=== PATIENT | male | born 1945 | race Caucasian/White ===

== ENCOUNTER 2020-04-18 17:31 | Inpatient (IN) ==
[2020-04-18] MEDS ORDERED: Azithromycin 500 MG in 0.9 % Sodium Chloride 250 ML IVPB ONE (18:04)
[2020-04-18] MEDS ORDERED: cefTRIAXone 1,000 MG in Water for inj. (sterile) 10 ML IVP ONE (18:04)
[2020-04-18 18:19] LABS: Basophils % 0.3 %; Hematocrit 45.8 % (37.5-50.1); Immature Granulocytes % 0.4 % (0-4); Immature Platelets 7.1 % (1.1-6.1); Lymphocytes % 10.9 %; Mean Corpuscular HGB Conc 32.8 g/dL (31.6-35.5); Mean Corpuscular Volume 88.4 fL (83.0-100.0); Mean Platelet Volume 11.3 fL (9.4-12.4); Monocytes # 1.1 K/mcL (0.0-1.3); Monocytes % 12.1 %; Platelet Count 126 K/mcL (140-400); Red Blood Count 5.18 M/mcL (4.19-5.50); Red Cell Distribution Width 13.2 % (11.5-14.5); Segmented Neutrophils % 76.3 %; White Blood Count 9.2 K/mcL (4.3-11.1)
[2020-04-18 18:22] LABS: INR 1.2
[2020-04-18 18:25] LABS: Activated Partial Thrombo Time 30.6 Seconds (26.0-36.0)
[2020-04-18] MEDS: 0.9 % Sodium Chloride 1,000 ML IVC SCH ×2 (18:29→19:30)
[2020-04-18 18:40] LABS: Alanine Aminotransferase 19 Units/L (7-52); Albumin/Globulin Ratio 1.2 (1.1-2.2); Alkaline Phosphatase 57 Units/L (34-104); Aspartate Amino Transferase 27 Units/L (13-39); BUN/Creatinine Ratio 12 (6-26); Bilirubin,Direct 0.2 mg/dL (0.0-0.2); Bilirubin,Indirect 0.3 mg/dL (0.0-1.0); Bilirubin,Total 0.5 mg/dL (0.3-1.0); Blood Urea Nitrogen 14 mg/dL (8-23); Calcium 8.6 mg/dL (8.6-10.3); Carbon Dioxide 24 mEq/L (23-29); Chloride 99 mEq/L (98-107); Globulin 3.4 g/dL (2.4-3.5); Glucose 161 mg/dL (70-105); Lipase 29 Units/L (11-82); Magnesium 1.9 mg/dL (1.6-2.6); Osmolality,Calculated 278 (280-300); Phosphorous 1.3 mg/dL (2.7-4.5); Potassium 4.1 mEq/L (3.5-5.1); Sodium 132 mEq/L (136-145); Total Protein 7.4 g/dL (6.4-8.9); Troponin I < 0.03 ng/mL (< 0.04); eGFR For African Americans > 60 (> 60); eGFR For Non-African Americans > 60 (> 60)
[2020-04-18 18:48] LABS: VBG HCO3 27 mEq/L (21-27); VBG PCO2 46 mmHg (41-51); VBG PH 7.37 pH Units (7.32-7.42); VBG PO2 77 mmHg (25-50)
[2020-04-18 19:46] LABS: Bacteria,Urine Few per hpf (None-Few); Bilirubin,Urine Negative (Negative); Blood,Urine Negative (Negative); Clarity,Urine Clear (Clear); Color,Urine Yellow (Yellow); Glucose,Urine (UA) Normal (Normal); Hyaline Casts,Urine Few per lpf (None Seen); Ketones,Urine Trace mg/dL (Negative); Leukocyte Esterase,Urine Negative (Negative); Mucus,Urine Few per lpf (None-Few); Nitrite,Urine Negative (Negative); Protein,Urine 70 mg/dL (Neg-Trace); RBC,Urine 0-3 per hpf (0-3); Specific Gravity,Urine 1.024 (1.010-1.025); Squamous Epithelial Cell,Urine Few per hpf (None-Few); Urobilinogen,Urine Normal (Normal)
[2020-04-18] MEDS ORDERED: Ondansetron 4 MG/2 ML VIAL IVP PRN (21:21)
[2020-04-18] MEDS ORDERED: Naloxone 0.4 MG/ML INJ IVP PRN (21:21)
[2020-04-18] MEDS: *HR* Rivaroxaban 10 MG TABLET PO SCH (22:33)
[2020-04-18] MEDS: Acetaminophen 325 MG TABLET PO PRN (22:33)
[2020-04-19] MEDS ORDERED: *HR* OxyCODONE Immed Rel 5 MG TABLET PO ONE (03:13)
[2020-04-19 06:24] LABS: INR 1.8
[2020-04-19 06:35] LABS: Basophils % 0.3 %; Eosinophils % 0.3 %; Hematocrit 41.3 % (37.5-50.1); Immature Granulocytes % 0.2 % (0-4); Immature Platelets 7.5 % (1.1-6.1); Lymphocytes # 1.7 K/mcL (0.6-4.6); Lymphocytes % 28.9 %; Mean Corpuscular HGB Conc 31.5 g/dL (31.6-35.5); Mean Corpuscular Hemoglobin 28.5 pg (28.0-33.3); Mean Corpuscular Volume 90.6 fL (83.0-100.0); Mean Platelet Volume 10.7 fL (9.4-12.4); Monocytes # 0.9 K/mcL (0.0-1.3); Monocytes % 15.7 %; Neutrophils # 3.1 K/mcL (1.6-8.9); Platelet Count 107 K/mcL (140-400); Red Blood Count 4.56 M/mcL (4.19-5.50); Red Cell Distribution Width 13.4 % (11.5-14.5); Segmented Neutrophils % 54.6 %; White Blood Count 5.7 K/mcL (4.3-11.1)
[2020-04-19 06:40] LABS: Alanine Aminotransferase 16 Units/L (7-52); Albumin 3.5 g/dL (3.5-5.7); Albumin/Globulin Ratio 1.2 (1.1-2.2); Alkaline Phosphatase 48 Units/L (34-104); Aspartate Amino Transferase 27 Units/L (13-39); BUN/Creatinine Ratio 11 (6-26); Bilirubin,Total 0.4 mg/dL (0.3-1.0); Blood Urea Nitrogen 12 mg/dL (8-23); Carbon Dioxide 26 mEq/L (23-29); Chloride 102 mEq/L (98-107); Globulin 2.9 g/dL (2.4-3.5); Glucose 99 mg/dL (70-105); Lactate Dehydrogenase 219 Units/L (140-271); Magnesium 1.9 mg/dL (1.6-2.6); Osmolality,Calculated 280 (280-300); Phosphorous 2.2 mg/dL (2.7-4.5); Potassium 3.9 mEq/L (3.5-5.1); Sodium 135 mEq/L (136-145); Total Protein 6.4 g/dL (6.4-8.9); eGFR For African Americans > 60 (> 60); eGFR For Non-African Americans > 60 (> 60)
[2020-04-19 06:54] LABS: Ferritin 558 ng/mL (20-250)
[2020-04-19] MEDS: DilTIAZem CD (24hr) 120 MG CAP.ER.24H PO SCH (07:59)
[2020-04-19 12:56] LABS: C-Reactive Protein 112 mg/L (Less than 10)
[2020-04-19] MEDS: levoFLOXacin 750 MG/150 ML 750 MG/150 ML BAG IVPB SCH (16:15)
[2020-04-19] MEDS: *HR* Rivaroxaban 10 MG TABLET PO SCH (17:38)
[2020-04-19] MEDS: Acetaminophen 325 MG TABLET PO PRN (20:07)
[2020-04-20 07:18] LABS: Fibrinogen 615 mg/dL (169-393)
[2020-04-20 07:27] LABS: D-Dimer 520 ng/mLFEU (0-500)
[2020-04-20 07:33] LABS: BUN/Creatinine Ratio 15 (6-26); Blood Urea Nitrogen 12 mg/dL (8-23); Calcium 8.8 mg/dL (8.6-10.3); Carbon Dioxide 22 mEq/L (23-29); Chloride 101 mEq/L (98-107); Glucose 207 mg/dL (70-105); Lactate Dehydrogenase 251 Units/L (140-271); Magnesium 2.1 mg/dL (1.6-2.6); Osmolality,Calculated 284 (280-300); Phosphorous 2.4 mg/dL (2.7-4.5); Sodium 134 mEq/L (136-145); eGFR For African Americans > 60 (> 60); eGFR For Non-African Americans > 60 (> 60)
[2020-04-20 07:51] LABS: Ferritin 839 ng/mL (20-250)
[2020-04-20] MEDS: DilTIAZem CD (24hr) 120 MG CAP.ER.24H PO SCH (08:32)
[2020-04-20] MEDS: levoFLOXacin 750 MG/150 ML 750 MG/150 ML BAG IVPB SCH (08:36)
[2020-04-20] MEDS: *HR* Rivaroxaban 10 MG TABLET PO SCH (16:53)
[2020-04-20] MEDS: Melatonin 3 MG TABLET PO PRN (21:45)
[2020-04-21] MEDS: levoFLOXacin 750 MG/150 ML 750 MG/150 ML BAG IVPB SCH (07:52)
[2020-04-21] MEDS: DilTIAZem CD (24hr) 120 MG CAP.ER.24H PO SCH (09:00)
[2020-04-21] MEDS: *HR* Rivaroxaban 10 MG TABLET PO SCH (16:57)
[2020-04-21] MEDS: Melatonin 3 MG TABLET PO PRN (21:29)
[2020-04-22 05:38] LABS: BUN/Creatinine Ratio 18 (6-26); Blood Urea Nitrogen 18 mg/dL (8-23); Calcium 8.7 mg/dL (8.6-10.3); Carbon Dioxide 27 mEq/L (23-29); Chloride 97 mEq/L (98-107); Glucose 106 mg/dL (70-105); Magnesium 1.9 mg/dL (1.6-2.6); Osmolality,Calculated 276 (280-300); Phosphorous 2.8 mg/dL (2.7-4.5); Sodium 132 mEq/L (136-145); eGFR For African Americans > 60 (> 60); eGFR For Non-African Americans > 60 (> 60)
[2020-04-22] MEDS: Furosemide 20 MG/2 ML VIAL IVP SCH (08:42)
[2020-04-22] MEDS: levoFLOXacin 750 MG TABLET PO SCH (08:43)
[2020-04-22] MEDS: DilTIAZem CD (24hr) 120 MG CAP.ER.24H PO SCH (08:43)
[2020-04-22] MEDS: Acetaminophen 325 MG TABLET PO PRN ×2 (09:04→21:36)
[2020-04-22] MEDS: *HR* Rivaroxaban 10 MG TABLET PO SCH (17:18)
[2020-04-22] MEDS: Melatonin 3 MG TABLET PO PRN (21:36)
[2020-04-23] MEDS: levoFLOXacin 750 MG TABLET PO SCH (09:01)
[2020-04-23] MEDS: DilTIAZem CD (24hr) 120 MG CAP.ER.24H PO SCH (09:01)
[2020-04-23] MEDS: Furosemide 20 MG/2 ML VIAL IVP SCH (09:01)
[2020-04-23 09:32] LABS: Basophils % 0.1 %; Hematocrit 45.4 % (37.5-50.1); Immature Granulocytes % 0.8 % (0-4); Lymphocytes # 0.9 K/mcL (0.6-4.6); Lymphocytes % 10.2 %; Mean Corpuscular HGB Conc 33.3 g/dL (31.6-35.5); Mean Corpuscular Hemoglobin 29.4 pg (28.0-33.3); Mean Corpuscular Volume 88.3 fL (83.0-100.0); Mean Platelet Volume 11.2 fL (9.4-12.4); Monocytes # 0.8 K/mcL (0.0-1.3); Monocytes % 9.1 %; Neutrophils # 6.8 K/mcL (1.6-8.9); Platelet Count 198 K/mcL (140-400); Red Blood Count 5.14 M/mcL (4.19-5.50); Red Cell Distribution Width 13.2 % (11.5-14.5); Segmented Neutrophils % 79.8 %; White Blood Count 8.5 K/mcL (4.3-11.1)
[2020-04-23 09:33] LABS: Hemoglobin 15.1 g/dL (12.9-16.9)
[2020-04-23] MEDS: *HR* HYDROcodone/Acet 5/325 mg TABLET PO PRN ×2 (09:39→17:02)
[2020-04-23 09:46] LABS: BUN/Creatinine Ratio 23 (6-26); Blood Urea Nitrogen 20 mg/dL (8-23); Calcium 8.7 mg/dL (8.6-10.3); Carbon Dioxide 27 mEq/L (23-29); Chloride 97 mEq/L (98-107); Ferritin > 1500 ng/mL (20-250); Glucose 119 mg/dL (70-105); Osmolality,Calculated 282 (280-300); Potassium 4.1 mEq/L (3.5-5.1); Sodium 134 mEq/L (136-145); eGFR For African Americans > 60 (> 60); eGFR For Non-African Americans > 60 (> 60)
[2020-04-23 10:06] LABS: Alanine Aminotransferase 48 Units/L (7-52); Albumin 3.7 g/dL (3.5-5.7); Alkaline Phosphatase 57 Units/L (34-104); Aspartate Amino Transferase 38 Units/L (13-39); Bilirubin,Direct 0.2 mg/dL (0.0-0.2); Bilirubin,Indirect 0.5 mg/dL (0.0-1.0); Bilirubin,Total 0.7 mg/dL (0.3-1.0); Globulin 3.6 g/dL (2.4-3.5); Total Protein 7.3 g/dL (6.4-8.9)
[2020-04-23] MEDS ORDERED: Remdesivir 200 MG in 0.9 % Sodium Chloride 100 ML IVPB ONE (13:00)
[2020-04-23] MEDS: *HR* Rivaroxaban 10 MG TABLET PO SCH (17:02)
[2020-04-23] MEDS: Acetaminophen 325 MG TABLET PO PRN (19:54)
[2020-04-23] MEDS: Melatonin 3 MG TABLET PO PRN (19:55)
[2020-04-24 03:16] LABS: Hematocrit 42.1 % (37.5-50.1); Hemoglobin 14.2 g/dL (12.9-16.9); Mean Corpuscular HGB Conc 33.7 g/dL (31.6-35.5); Mean Corpuscular Hemoglobin 29.5 pg (28.0-33.3); Mean Corpuscular Volume 87.5 fL (83.0-100.0); Mean Platelet Volume 11.1 fL (9.4-12.4); Platelet Count 217 K/mcL (140-400); Red Blood Count 4.81 M/mcL (4.19-5.50); Red Cell Distribution Width 13.1 % (11.5-14.5); White Blood Count 9.9 K/mcL (4.3-11.1)
[2020-04-24 03:20] LABS: INR 2.2; Prothrombin Time 24.5 Seconds (9.4-12.1)
[2020-04-24 03:37] LABS: Alanine Aminotransferase 39 Units/L (7-52); Albumin 3.4 g/dL (3.5-5.7); Alkaline Phosphatase 51 Units/L (34-104); Aspartate Amino Transferase 27 Units/L (13-39); BUN/Creatinine Ratio 34 (6-26); Bilirubin,Total 0.4 mg/dL (0.3-1.0); Blood Urea Nitrogen 29 mg/dL (8-23); Calcium 8.9 mg/dL (8.6-10.3); Carbon Dioxide 25 mEq/L (23-29); Chloride 98 mEq/L (98-107); Globulin 3.3 g/dL (2.4-3.5); Glucose 233 mg/dL (70-105); Magnesium 2.3 mg/dL (1.6-2.6); Osmolality,Calculated 285 (280-300); Phosphorous 3.2 mg/dL (2.7-4.5); Potassium 4.4 mEq/L (3.5-5.1); Sodium 131 mEq/L (136-145); Total Protein 6.7 g/dL (6.4-8.9); eGFR For African Americans > 60 (> 60); eGFR For Non-African Americans > 60 (> 60)
[2020-04-24] MEDS: GuaiFENesin/Dextromethorphan TABLET PO PRN (08:58)
[2020-04-24] MEDS: *HR* HYDROcodone/Acet 5/325 mg TABLET PO PRN ×3 (08:58→21:36)
[2020-04-24] MEDS: levoFLOXacin 750 MG TABLET PO SCH (08:58)
[2020-04-24] MEDS: DilTIAZem CD (24hr) 120 MG CAP.ER.24H PO SCH (08:58)
[2020-04-24] MEDS: Loratadine 10 MG TABLET PO SCH (08:58)
[2020-04-24] MEDS: Furosemide 20 MG/2 ML VIAL IVP SCH (08:59)
[2020-04-24] MEDS: Ipratropium 1 PUFF INHALER IH SCH ×4 (12:20→23:53)
[2020-04-24] MEDS: Remdesivir 100 MG in 0.9 % Sodium Chloride 100 ML IVPB SCH (14:27)
[2020-04-24] MEDS: *HR* Rivaroxaban 10 MG TABLET PO SCH (18:13)
[2020-04-24] MEDS: Furosemide 40 MG/4 ML VIAL IVP SCH (21:06)
[2020-04-25] MEDS: Ipratropium 1 PUFF INHALER IH SCH ×5 (04:07→20:24)
[2020-04-25 05:34] LABS: Basophils % 0.2 %; Hematocrit 43.4 % (37.5-50.1); Hematocrit 45.3 % (37.5-50.1); Hemoglobin 14.7 g/dL (12.9-16.9); Immature Granulocytes % 1.3 % (0-4); Lymphocytes % 8.3 %; Mean Corpuscular HGB Conc 32.5 g/dL (31.6-35.5); Mean Corpuscular HGB Conc 33.9 g/dL (31.6-35.5); Mean Corpuscular Hemoglobin 28.6 pg (28.0-33.3); Mean Corpuscular Hemoglobin 29.8 pg (28.0-33.3); Mean Corpuscular Volume 87.9 fL (83.0-100.0); Mean Corpuscular Volume 88.1 fL (83.0-100.0); Mean Platelet Volume 10.9 fL (9.4-12.4); Mean Platelet Volume 11.1 fL (9.4-12.4); Monocytes # 1.3 K/mcL (0.0-1.3); Neutrophils # 10.1 K/mcL (1.6-8.9); Platelet Count 280 K/mcL (140-400); Platelet Count 294 K/mcL (140-400); Red Blood Count 4.94 M/mcL (4.19-5.50); Red Blood Count 5.14 M/mcL (4.19-5.50); Red Cell Distribution Width 13.2 % (11.5-14.5); Segmented Neutrophils % 80.2 %; White Blood Count 12.6 K/mcL (4.3-11.1); White Blood Count 12.8 K/mcL (4.3-11.1)
[2020-04-25 05:36] LABS: Prothrombin Time 22.7 Seconds (9.4-12.1)
[2020-04-25 05:50] LABS: Alanine Aminotransferase 37 Units/L (7-52); Albumin 3.4 g/dL (3.5-5.7); Alkaline Phosphatase 52 Units/L (34-104); Aspartate Amino Transferase 24 Units/L (13-39); BUN/Creatinine Ratio 38 (6-26); Bilirubin,Total 0.5 mg/dL (0.3-1.0); Blood Urea Nitrogen 34 mg/dL (8-23); Carbon Dioxide 25 mEq/L (23-29); Chloride 96 mEq/L (98-107); Globulin 3.4 g/dL (2.4-3.5); Glucose 251 mg/dL (70-105); Osmolality,Calculated 290 (280-300); Potassium 4.2 mEq/L (3.5-5.1); Sodium 132 mEq/L (136-145); Total Protein 6.8 g/dL (6.4-8.9); eGFR For African Americans > 60 (> 60); eGFR For Non-African Americans > 60 (> 60)
[2020-04-25] MEDS: Furosemide 40 MG/4 ML VIAL IVP SCH ×2 (07:53→20:30)
[2020-04-25] MEDS: Pantoprazole 40 MG VIAL IVP SCH (07:57)
[2020-04-25] MEDS: Loratadine 10 MG TABLET PO SCH (07:58)
[2020-04-25] MEDS: DilTIAZem CD (24hr) 120 MG CAP.ER.24H PO SCH (07:58)
[2020-04-25] MEDS: levoFLOXacin 750 MG TABLET PO SCH (07:58)
[2020-04-25] MEDS: Doxycycline 100 MG in 0.9 % Sodium Chloride Mini Bag 100 ML IVPB SCH ×2 (08:26→16:25)
[2020-04-25] MEDS ORDERED: D5% in Water 1,000 ML IVC PRN (12:57)
[2020-04-25] MEDS ORDERED: Dextrose Gel 15 GM/37.5 ML TUBE PO PRN ×2 (12:57)
[2020-04-25] MEDS ORDERED: *HR* Dextrose 50 % in Water (Vial) 50 ML VIAL IVP PRN (12:57)
[2020-04-25] MEDS: Remdesivir 100 MG in 0.9 % Sodium Chloride 100 ML IVPB SCH (12:59)
[2020-04-25] MEDS: Insulin LISPRO 300 UNITS/3 ML VIAL SUBQ SCH (16:25)
[2020-04-25] MEDS: *HR* Rivaroxaban 10 MG TABLET PO SCH (16:25)
[2020-04-25 17:36] LABS: ABG Base Excess 1 mEq/L (-2 to 3); ABG HCO3 24 mEq/L (21-27); ABG Oxygen Saturation 89 % (95-98); ABG PCO2 34 mmHg (35-45); ABG PH 7.46 pH Units (7.32-7.45); ABG PO2 52 mmHg (85-104); ABG TCO2 25 mEq/L (20-26)
[2020-04-25] MEDS: *HR* HYDROcodone/Acet 5/325 mg TABLET PO PRN (18:24)
[2020-04-25] MEDS ORDERED: Insulin LISPRO 300 UNITS/3 ML VIAL SUBQ SCH (21:00)
[2020-04-26] MEDS: Ipratropium 1 PUFF INHALER IH SCH ×7 (00:35→23:57)
[2020-04-26] MEDS: Doxycycline 100 MG in 0.9 % Sodium Chloride Mini Bag 100 ML IVPB SCH ×2 (05:33→17:02)
[2020-04-26 05:37] LABS: Basophils # 0.1 K/mcL (0.0-0.2); Basophils % 0.4 %; Hematocrit 43.8 % (37.5-50.1); Hemoglobin 14.6 g/dL (12.9-16.9); Lymphocytes # 1.1 K/mcL (0.6-4.6); Lymphocytes % 8.6 %; Mean Corpuscular HGB Conc 33.3 g/dL (31.6-35.5); Mean Corpuscular Hemoglobin 29.4 pg (28.0-33.3); Mean Corpuscular Volume 88.1 fL (83.0-100.0); Mean Platelet Volume 10.8 fL (9.4-12.4); Monocytes # 1.3 K/mcL (0.0-1.3); Monocytes % 10.5 %; Neutrophils # 9.7 K/mcL (1.6-8.9); Platelet Count 297 K/mcL (140-400); Red Blood Count 4.97 M/mcL (4.19-5.50); Red Cell Distribution Width 13.2 % (11.5-14.5); Segmented Neutrophils % 78.5 %; White Blood Count 12.3 K/mcL (4.3-11.1)
[2020-04-26 05:48] LABS: INR 1.9; Prothrombin Time 21.9 Seconds (9.4-12.1)
[2020-04-26 06:01] LABS: Alanine Aminotransferase 46 Units/L (7-52); Albumin 3.4 g/dL (3.5-5.7); Alkaline Phosphatase 54 Units/L (34-104); Aspartate Amino Transferase 24 Units/L (13-39); BUN/Creatinine Ratio 43 (6-26); Bilirubin,Total 0.6 mg/dL (0.3-1.0); Blood Urea Nitrogen 41 mg/dL (8-23); Calcium 9.2 mg/dL (8.6-10.3); Carbon Dioxide 26 mEq/L (23-29); Chloride 95 mEq/L (98-107); Globulin 3.3 g/dL (2.4-3.5); Glucose 357 mg/dL (70-105); Magnesium 2.3 mg/dL (1.6-2.6); Osmolality,Calculated 298 (280-300); Potassium 4.4 mEq/L (3.5-5.1); Sodium 132 mEq/L (136-145); Total Protein 6.7 g/dL (6.4-8.9); eGFR For African Americans > 60 (> 60); eGFR For Non-African Americans > 60 (> 60)
[2020-04-26 06:12] LABS: Platelet Estimate Normal (Normal); Reactive Lymphocytes Present (Not Present); Smudge Cells Present (Not Present)
[2020-04-26] MEDS: Furosemide 40 MG/4 ML VIAL IVP SCH ×2 (08:25→19:55)
[2020-04-26] MEDS: Pantoprazole 40 MG VIAL IVP SCH (08:26)
[2020-04-26] MEDS: Loratadine 10 MG TABLET PO SCH (08:26)
[2020-04-26] MEDS: DilTIAZem CD (24hr) 120 MG CAP.ER.24H PO SCH (08:26)
[2020-04-26] MEDS: Insulin LISPRO 300 UNITS/3 ML VIAL SUBQ SCH ×4 (08:27→20:15)
[2020-04-26] MEDS: *HR* HYDROcodone/Acet 5/325 mg TABLET PO PRN ×2 (09:24→20:44)
[2020-04-26] MEDS ORDERED: Insulin DETEMIR 100 UNIT/ML X5UNITS SUBQ SCH ×3 (12:15→21:00)
[2020-04-26] MEDS: Remdesivir 100 MG in 0.9 % Sodium Chloride 100 ML IVPB SCH (12:54)
[2020-04-26] MEDS: *HR* Rivaroxaban 10 MG TABLET PO SCH (17:02)
[2020-04-26] MEDS ORDERED: *HR* Dextrose 50 % in Water (Vial) 50 ML VIAL IVP PRN (20:00)
[2020-04-26] MEDS ORDERED: D5% in Water 1,000 ML IVC PRN (20:00)
[2020-04-26] MEDS ORDERED: Dextrose Gel 15 GM/37.5 ML TUBE PO PRN ×2 (20:00)
[2020-04-27] MEDS: Ipratropium 1 PUFF INHALER IH SCH ×6 (04:25→23:56)
[2020-04-27 05:36] LABS: Hematocrit 44.8 % (37.5-50.1); Hemoglobin 14.9 g/dL (12.9-16.9); Mean Corpuscular HGB Conc 33.3 g/dL (31.6-35.5); Mean Corpuscular Volume 87.2 fL (83.0-100.0); Mean Platelet Volume 10.8 fL (9.4-12.4); Platelet Count 304 K/mcL (140-400); Red Blood Count 5.14 M/mcL (4.19-5.50); Red Cell Distribution Width 13.1 % (11.5-14.5); White Blood Count 14.5 K/mcL (4.3-11.1)
[2020-04-27 05:43] LABS: INR 1.5
[2020-04-27] MEDS: Doxycycline 100 MG in 0.9 % Sodium Chloride Mini Bag 100 ML IVPB SCH ×2 (05:45→18:12)
[2020-04-27 05:56] LABS: Alanine Aminotransferase 53 Units/L (7-52); Albumin 3.4 g/dL (3.5-5.7); Alkaline Phosphatase 55 Units/L (34-104); Aspartate Amino Transferase 20 Units/L (13-39); BUN/Creatinine Ratio 43 (6-26); Bilirubin,Total 0.7 mg/dL (0.3-1.0); Blood Urea Nitrogen 40 mg/dL (8-23); Calcium 9.3 mg/dL (8.6-10.3); Carbon Dioxide 30 mEq/L (23-29); Chloride 92 mEq/L (98-107); Globulin 3.3 g/dL (2.4-3.5); Glucose 367 mg/dL (70-105); Osmolality,Calculated 295 (280-300); Potassium 4.8 mEq/L (3.5-5.1); Sodium 130 mEq/L (136-145); Total Protein 6.7 g/dL (6.4-8.9); eGFR For African Americans > 60 (> 60); eGFR For Non-African Americans > 60 (> 60)
[2020-04-27] MEDS ORDERED: Magic Mouthwash 10 ML UD Cup PO SCH (07:45)
[2020-04-27] MEDS: Insulin LISPRO 300 UNITS/3 ML VIAL SUBQ SCH ×4 (09:19→20:36)
[2020-04-27] MEDS: Insulin DETEMIR 100 UNIT/ML X5UNITS SUBQ SCH ×2 (09:20→20:36)
[2020-04-27] MEDS: Loratadine 10 MG TABLET PO SCH (09:20)
[2020-04-27] MEDS: Fluconazole 400 MG/200 ML 400 MG/200 ML BAG IVPB SCH (09:20)
[2020-04-27] MEDS: DilTIAZem CD (24hr) 120 MG CAP.ER.24H PO SCH (09:20)
[2020-04-27] MEDS: Furosemide 40 MG/4 ML VIAL IVP SCH ×2 (09:21→18:11)
[2020-04-27] MEDS: Pantoprazole 40 MG VIAL IVP SCH (09:21)
[2020-04-27] MEDS: GI Cocktail 40 ML EACH PO SCH ×3 (09:29→18:11)
[2020-04-27 09:36] LABS: Estimated Average Glucose 166 mg/dl; Hemoglobin A1C 7.4 %
[2020-04-27] MEDS: *HR* HYDROcodone/Acet 5/325 mg TABLET PO PRN (12:18)
[2020-04-27] MEDS: Remdesivir 100 MG in 0.9 % Sodium Chloride 100 ML IVPB SCH (13:38)
[2020-04-27] MEDS: *HR* Rivaroxaban 10 MG TABLET PO SCH (18:12)
[2020-04-28] MEDS: Ipratropium 1 PUFF INHALER IH SCH ×5 (04:06→20:25)
[2020-04-28] MEDS: Doxycycline 100 MG in 0.9 % Sodium Chloride Mini Bag 100 ML IVPB SCH ×2 (05:19→17:18)
[2020-04-28 06:10] LABS: Basophils # 0.1 K/mcL (0.0-0.2); Basophils % 0.4 %; Fibrinogen 448 mg/dL (169-393); Hemoglobin 15.4 g/dL (12.9-16.9); Immature Granulocytes % 2.8 % (0-4); Lymphocytes % 6.3 %; Mean Corpuscular HGB Conc 32.8 g/dL (31.6-35.5); Mean Corpuscular Hemoglobin 28.3 pg (28.0-33.3); Mean Corpuscular Volume 86.4 fL (83.0-100.0); Mean Platelet Volume 11.2 fL (9.4-12.4); Monocytes # 1.3 K/mcL (0.0-1.3); Monocytes % 8.4 %; Neutrophils # 12.4 K/mcL (1.6-8.9); Platelet Count 324 K/mcL (140-400); Red Blood Count 5.44 M/mcL (4.19-5.50); Red Cell Distribution Width 13.2 % (11.5-14.5); Segmented Neutrophils % 82.1 %; White Blood Count 15.2 K/mcL (4.3-11.1)
[2020-04-28 06:11] LABS: D-Dimer 610 ng/mLFEU (0-500)
[2020-04-28 06:31] LABS: BUN/Creatinine Ratio 46 (6-26); Blood Urea Nitrogen 46 mg/dL (8-23); Calcium 9.5 mg/dL (8.6-10.3); Carbon Dioxide 29 mEq/L (23-29); Chloride 90 mEq/L (98-107); Glucose 381 mg/dL (70-105); Osmolality,Calculated 298 (280-300); Potassium 4.9 mEq/L (3.5-5.1); Sodium 130 mEq/L (136-145); eGFR For African Americans > 60 (> 60); eGFR For Non-African Americans > 60 (> 60)
[2020-04-28] MEDS: Furosemide 40 MG/4 ML VIAL IVP SCH (08:42)
[2020-04-28] MEDS: Insulin DETEMIR 100 UNIT/ML X5UNITS SUBQ SCH ×2 (08:42→20:10)
[2020-04-28] MEDS: GI Cocktail 40 ML EACH PO SCH ×3 (08:42→17:17)
[2020-04-28] MEDS: Fluconazole 400 MG/200 ML 400 MG/200 ML BAG IVPB SCH (08:43)
[2020-04-28] MEDS: Pantoprazole 40 MG VIAL IVP SCH (08:43)
[2020-04-28] MEDS: Loratadine 10 MG TABLET PO SCH (08:44)
[2020-04-28] MEDS: DilTIAZem CD (24hr) 120 MG CAP.ER.24H PO SCH (08:44)
[2020-04-28] MEDS: Insulin LISPRO 300 UNITS/3 ML VIAL SUBQ SCH ×4 (08:45→20:21)
[2020-04-28] MEDS: *HR* HYDROcodone/Acet 5/325 mg TABLET PO PRN (11:47)
[2020-04-28] MEDS: *HR* Rivaroxaban 10 MG TABLET PO SCH (17:19)
[2020-04-29] MEDS: Ipratropium 1 PUFF INHALER IH SCH ×6 (00:13→20:12)
[2020-04-29] MEDS: Doxycycline 100 MG in 0.9 % Sodium Chloride Mini Bag 100 ML IVPB SCH ×2 (05:31→17:06)
[2020-04-29 06:36] LABS: Basophils # 0.1 K/mcL (0.0-0.2); Basophils % 0.3 %; Hematocrit 48.2 % (37.5-50.1); Hemoglobin 15.8 g/dL (12.9-16.9); Immature Granulocytes % 2.6 % (0-4); Lymphocytes # 1.1 K/mcL (0.6-4.6); Lymphocytes % 6.5 %; Mean Corpuscular HGB Conc 32.8 g/dL (31.6-35.5); Mean Corpuscular Hemoglobin 28.4 pg (28.0-33.3); Mean Corpuscular Volume 86.7 fL (83.0-100.0); Mean Platelet Volume 10.9 fL (9.4-12.4); Monocytes # 1.4 K/mcL (0.0-1.3); Monocytes % 8.2 %; Neutrophils # 14.2 K/mcL (1.6-8.9); Platelet Count 312 K/mcL (140-400); Red Blood Count 5.56 M/mcL (4.19-5.50); Red Cell Distribution Width 13.1 % (11.5-14.5); Segmented Neutrophils % 82.4 %; White Blood Count 17.3 K/mcL (4.3-11.1)
[2020-04-29 06:42] LABS: Fibrinogen 384 mg/dL (169-393)
[2020-04-29 06:43] LABS: D-Dimer 459 ng/mLFEU (0-500)
[2020-04-29 06:54] LABS: Magnesium 2.4 mg/dL (1.6-2.6); Phosphorous 4.2 mg/dL (2.7-4.5)
[2020-04-29 06:59] LABS: BUN/Creatinine Ratio 49 (6-26); Blood Urea Nitrogen 47 mg/dL (8-23); Calcium 9.1 mg/dL (8.6-10.3); Carbon Dioxide 31 mEq/L (23-29); Chloride 92 mEq/L (98-107); Glucose 173 mg/dL (70-105); Osmolality,Calculated 288 (280-300); Potassium 4.8 mEq/L (3.5-5.1); Sodium 131 mEq/L (136-145); eGFR For African Americans > 60 (> 60); eGFR For Non-African Americans > 60 (> 60)
[2020-04-29] MEDS: Fluconazole 400 MG/200 ML 400 MG/200 ML BAG IVPB SCH (08:34)
[2020-04-29] MEDS: Furosemide 40 MG/4 ML VIAL IVP SCH ×3 (08:35→22:26)
[2020-04-29] MEDS: DilTIAZem CD (24hr) 120 MG CAP.ER.24H PO SCH (08:35)
[2020-04-29] MEDS: Pantoprazole 40 MG VIAL IVP SCH ×2 (08:35→13:04)
[2020-04-29] MEDS: Loratadine 10 MG TABLET PO SCH (08:35)
[2020-04-29] MEDS: Insulin LISPRO 300 UNITS/3 ML VIAL SUBQ SCH ×4 (08:38→22:26)
[2020-04-29] MEDS: Insulin DETEMIR 100 UNIT/ML X5UNITS SUBQ SCH ×2 (08:39→22:27)
[2020-04-29] MEDS: GI Cocktail 40 ML EACH PO SCH ×3 (08:44→17:07)
[2020-04-29] MEDS: *HR* HYDROcodone/Acet 5/325 mg TABLET PO PRN ×2 (11:20→22:44)
[2020-04-29] MEDS: *HR* Rivaroxaban 10 MG TABLET PO SCH (17:05)
[2020-04-30] MEDS: Ipratropium 1 PUFF INHALER IH SCH ×7 (00:07→23:57)
[2020-04-30 02:40] LABS: Basophils % 0.3 %; Hematocrit 48.1 % (37.5-50.1); Immature Granulocytes % 2.2 % (0-4); Lymphocytes # 0.6 K/mcL (0.6-4.6); Lymphocytes % 4.6 %; Mean Corpuscular HGB Conc 33.3 g/dL (31.6-35.5); Mean Corpuscular Hemoglobin 28.8 pg (28.0-33.3); Mean Corpuscular Volume 86.7 fL (83.0-100.0); Mean Platelet Volume 10.8 fL (9.4-12.4); Monocytes % 7.1 %; Neutrophils # 11.6 K/mcL (1.6-8.9); Platelet Count 296 K/mcL (140-400); Red Blood Count 5.55 M/mcL (4.19-5.50); Red Cell Distribution Width 13.2 % (11.5-14.5); Segmented Neutrophils % 85.8 %; White Blood Count 13.6 K/mcL (4.3-11.1)
[2020-04-30 03:00] LABS: BUN/Creatinine Ratio 46 (6-26); Blood Urea Nitrogen 51 mg/dL (8-23); Calcium 9.1 mg/dL (8.6-10.3); Carbon Dioxide 28 mEq/L (23-29); Chloride 88 mEq/L (98-107); Glucose 419 mg/dL (70-105); Osmolality,Calculated 297 (280-300); Phosphorous 4.1 mg/dL (2.7-4.5); Sodium 128 mEq/L (136-145); eGFR For African Americans > 60 (> 60); eGFR For Non-African Americans > 60 (> 60)
[2020-04-30] MEDS: *HR* HYDROcodone/Acet 5/325 mg TABLET PO PRN ×2 (04:39→20:17)
[2020-04-30] MEDS: Doxycycline 100 MG in 0.9 % Sodium Chloride Mini Bag 100 ML IVPB SCH ×2 (05:57→17:52)
[2020-04-30] MEDS: Insulin LISPRO 300 UNITS/3 ML VIAL SUBQ SCH ×4 (08:20→21:24)
[2020-04-30] MEDS: GI Cocktail 40 ML EACH PO SCH (08:26)
[2020-04-30] MEDS: Loratadine 10 MG TABLET PO SCH (08:29)
[2020-04-30] MEDS: DilTIAZem CD (24hr) 120 MG CAP.ER.24H PO SCH (08:29)
[2020-04-30] MEDS: Furosemide 40 MG/4 ML VIAL IVP SCH (08:34)
[2020-04-30] MEDS: Pantoprazole 40 MG VIAL IVP SCH (08:38)
[2020-04-30] MEDS: Insulin DETEMIR 100 UNIT/ML X5UNITS SUBQ SCH ×3 (08:41→20:32)
[2020-04-30] MEDS: Fluconazole 400 MG/200 ML 400 MG/200 ML BAG IVPB SCH (08:42)
[2020-04-30] MEDS ORDERED: Dextrose Gel 15 GM/37.5 ML TUBE PO PRN ×2 (16:14)
[2020-04-30] MEDS ORDERED: *HR* Dextrose 50 % in Water (Vial) 50 ML VIAL IVP PRN (16:14)
[2020-04-30] MEDS ORDERED: D5% in Water 1,000 ML IVC PRN (16:14)
[2020-04-30] MEDS: *HR* Rivaroxaban 10 MG TABLET PO SCH (17:52)
[2020-05-01 01:55] LABS: Basophils % 0.2 %; Hematocrit 50.7 % (37.5-50.1); Hemoglobin 16.5 g/dL (12.9-16.9); Immature Granulocytes % 1.4 % (0-4); Lymphocytes # 0.9 K/mcL (0.6-4.6); Lymphocytes % 5.2 %; Mean Corpuscular HGB Conc 32.5 g/dL (31.6-35.5); Mean Corpuscular Hemoglobin 28.4 pg (28.0-33.3); Mean Corpuscular Volume 87.1 fL (83.0-100.0); Mean Platelet Volume 10.7 fL (9.4-12.4); Monocytes # 1.5 K/mcL (0.0-1.3); Monocytes % 8.8 %; Neutrophils # 14.6 K/mcL (1.6-8.9); Platelet Count 275 K/mcL (140-400); Red Blood Count 5.82 M/mcL (4.19-5.50); Red Cell Distribution Width 13.2 % (11.5-14.5); Segmented Neutrophils % 84.4 %; White Blood Count 17.3 K/mcL (4.3-11.1)
[2020-05-01 02:19] LABS: BUN/Creatinine Ratio 49 (6-26); Blood Urea Nitrogen 50 mg/dL (8-23); Calcium 9.1 mg/dL (8.6-10.3); Carbon Dioxide 32 mEq/L (23-29); Chloride 91 mEq/L (98-107); Glucose 167 mg/dL (70-105); Osmolality,Calculated 291 (280-300); Potassium 5.1 mEq/L (3.5-5.1); Sodium 132 mEq/L (136-145); eGFR For African Americans > 60 (> 60); eGFR For Non-African Americans > 60 (> 60)
[2020-05-01] MEDS: Ipratropium 1 PUFF INHALER IH SCH ×6 (03:54→22:59)
[2020-05-01] MEDS: Doxycycline 100 MG in 0.9 % Sodium Chloride Mini Bag 100 ML IVPB SCH (05:19)
[2020-05-01] MEDS: Insulin LISPRO 300 UNITS/3 ML VIAL SUBQ SCH ×4 (08:21→19:50)
[2020-05-01] MEDS: Insulin DETEMIR 100 UNIT/ML X5UNITS SUBQ SCH ×2 (08:22→19:49)
[2020-05-01] MEDS: Fluconazole 400 MG/200 ML 400 MG/200 ML BAG IVPB SCH (08:22)
[2020-05-01] MEDS: Loratadine 10 MG TABLET PO SCH (08:22)
[2020-05-01] MEDS: DilTIAZem CD (24hr) 120 MG CAP.ER.24H PO SCH (08:22)
[2020-05-01] MEDS: cefTRIAXone 1,000 MG in Water for inj. (sterile) 10 ML IVP SCH (17:08)
[2020-05-01] MEDS: *HR* Metformin 500 MG TABLET PO SCH (17:08)
[2020-05-01] MEDS: *HR* Rivaroxaban 10 MG TABLET PO SCH (17:08)
[2020-05-01] MEDS: *HR* HYDROcodone/Acet 5/325 mg TABLET PO PRN (17:21)
[2020-05-02] MEDS ORDERED: Melatonin 3 MG TABLET PO ONE (00:10)
[2020-05-02] MEDS: Ipratropium 1 PUFF INHALER IH SCH ×6 (04:22→23:33)
[2020-05-02 06:56] LABS: Basophils % 0.2 %; Hematocrit 50.5 % (37.5-50.1); Immature Granulocytes % 0.9 % (0-4); Lymphocytes # 0.9 K/mcL (0.6-4.6); Lymphocytes % 4.5 %; Mean Corpuscular HGB Conc 33.7 g/dL (31.6-35.5); Mean Corpuscular Hemoglobin 29.7 pg (28.0-33.3); Mean Corpuscular Volume 88.1 fL (83.0-100.0); Monocytes # 1.8 K/mcL (0.0-1.3); Monocytes % 9.7 %; Neutrophils # 15.9 K/mcL (1.6-8.9); Platelet Count 230 K/mcL (140-400); Red Blood Count 5.73 M/mcL (4.19-5.50); Red Cell Distribution Width 13.2 % (11.5-14.5); Segmented Neutrophils % 84.7 %; White Blood Count 18.7 K/mcL (4.3-11.1)
[2020-05-02 07:15] LABS: BUN/Creatinine Ratio 49 (6-26); Blood Urea Nitrogen 47 mg/dL (8-23); Carbon Dioxide 30 mEq/L (23-29); Chloride 95 mEq/L (98-107); Glucose 87 mg/dL (70-105); Osmolality,Calculated 288 (280-300); Potassium 5.2 mEq/L (3.5-5.1); Sodium 133 mEq/L (136-145); eGFR For African Americans > 60 (> 60); eGFR For Non-African Americans > 60 (> 60)
[2020-05-02] MEDS: DilTIAZem CD (24hr) 120 MG CAP.ER.24H PO SCH (09:20)
[2020-05-02] MEDS: Loratadine 10 MG TABLET PO SCH (09:20)
[2020-05-02] MEDS: *HR* Metformin 500 MG TABLET PO SCH ×2 (09:20→17:33)
[2020-05-02] MEDS: Insulin DETEMIR 100 UNIT/ML X5UNITS SUBQ SCH (09:20)
[2020-05-02] MEDS: *HR* HYDROcodone/Acet 5/325 mg TABLET PO PRN (09:20)
[2020-05-02] MEDS: cefTRIAXone 1,000 MG in Water for inj. (sterile) 10 ML IVP SCH (09:21)
[2020-05-02] MEDS: Insulin LISPRO 300 UNITS/3 ML VIAL SUBQ SCH ×4 (09:22→20:28)
[2020-05-02] MEDS ORDERED: Insulin LISPRO 300 UNITS/3 ML VIAL SUBQ SCH (13:39)
[2020-05-02] MEDS: *HR* Rivaroxaban 10 MG TABLET PO SCH (17:33)
[2020-05-02] MEDS ORDERED: Insulin DETEMIR 100 UNIT/ML X5UNITS SUBQ SCH (21:00)
[2020-05-03] MEDS: *HR* HYDROcodone/Acet 5/325 mg TABLET PO PRN ×2 (01:39→18:48)
[2020-05-03] MEDS: Ipratropium 1 PUFF INHALER IH SCH ×6 (03:18→23:50)
[2020-05-03 06:37] LABS: Basophils % 0.2 %; Eosinophils % 0.1 %; Hematocrit 51.1 % (37.5-50.1); Hemoglobin 16.6 g/dL (12.9-16.9); Immature Granulocytes % 0.8 % (0-4); Lymphocytes # 0.9 K/mcL (0.6-4.6); Lymphocytes % 4.3 %; Mean Corpuscular HGB Conc 32.5 g/dL (31.6-35.5); Mean Corpuscular Hemoglobin 28.4 pg (28.0-33.3); Mean Corpuscular Volume 87.5 fL (83.0-100.0); Mean Platelet Volume 11.4 fL (9.4-12.4); Monocytes # 2.1 K/mcL (0.0-1.3); Monocytes % 10.2 %; Neutrophils # 17.4 K/mcL (1.6-8.9); Platelet Count 228 K/mcL (140-400); Red Blood Count 5.84 M/mcL (4.19-5.50); Red Cell Distribution Width 13.4 % (11.5-14.5); Segmented Neutrophils % 84.4 %; White Blood Count 20.6 K/mcL (4.3-11.1)
[2020-05-03 06:57] LABS: BUN/Creatinine Ratio 48 (6-26); Blood Urea Nitrogen 41 mg/dL (8-23); Calcium 9.3 mg/dL (8.6-10.3); Carbon Dioxide 30 mEq/L (23-29); Chloride 96 mEq/L (98-107); Glucose 73 mg/dL (70-105); Osmolality,Calculated 289 (280-300); Potassium 4.6 mEq/L (3.5-5.1); Sodium 135 mEq/L (136-145); eGFR For African Americans > 60 (> 60); eGFR For Non-African Americans > 60 (> 60)
[2020-05-03] MEDS: *HR* Metformin 500 MG TABLET PO SCH ×2 (07:41→17:03)
[2020-05-03] MEDS: Furosemide 20 MG TABLET PO SCH (07:42)
[2020-05-03] MEDS: DilTIAZem CD (24hr) 120 MG CAP.ER.24H PO SCH (07:42)
[2020-05-03] MEDS: Loratadine 10 MG TABLET PO SCH (07:42)
[2020-05-03] MEDS: cefTRIAXone 1,000 MG in Water for inj. (sterile) 10 ML IVP SCH (07:43)
[2020-05-03] MEDS: Insulin LISPRO 300 UNITS/3 ML VIAL SUBQ SCH ×3 (08:02→21:43)
[2020-05-03] MEDS: *HR* Rivaroxaban 10 MG TABLET PO SCH (17:03)
[2020-05-03] MEDS ORDERED: Insulin DETEMIR 100 UNIT/ML X5UNITS SUBQ SCH ×2 (21:00)
[2020-05-04 02:48] LABS: Basophils % 0.1 %; Eosinophils # 0.2 K/mcL (0.0-0.6); Hematocrit 50.7 % (37.5-50.1); Hemoglobin 16.8 g/dL (12.9-16.9); Immature Granulocytes % 0.8 % (0-4); Lymphocytes # 1.2 K/mcL (0.6-4.6); Lymphocytes % 6.9 %; Mean Corpuscular HGB Conc 33.1 g/dL (31.6-35.5); Mean Corpuscular Hemoglobin 29.4 pg (28.0-33.3); Mean Corpuscular Volume 88.8 fL (83.0-100.0); Monocytes # 1.8 K/mcL (0.0-1.3); Monocytes % 10.1 %; Neutrophils # 14.2 K/mcL (1.6-8.9); Platelet Count 212 K/mcL (140-400); Red Blood Count 5.71 M/mcL (4.19-5.50); Red Cell Distribution Width 13.4 % (11.5-14.5); Segmented Neutrophils % 81.1 %; White Blood Count 17.5 K/mcL (4.3-11.1)
[2020-05-04 03:07] LABS: BUN/Creatinine Ratio 43 (6-26); Blood Urea Nitrogen 40 mg/dL (8-23); Carbon Dioxide 26 mEq/L (23-29); Chloride 98 mEq/L (98-107); Glucose 159 mg/dL (70-105); Osmolality,Calculated 289 (280-300); Potassium 4.7 mEq/L (3.5-5.1); Sodium 133 mEq/L (136-145); eGFR For African Americans > 60 (> 60); eGFR For Non-African Americans > 60 (> 60)
[2020-05-04] MEDS: Ipratropium 1 PUFF INHALER IH SCH ×6 (04:00→23:57)
[2020-05-04] MEDS: *HR* HYDROcodone/Acet 5/325 mg TABLET PO PRN (06:49)
[2020-05-04] MEDS: Insulin LISPRO 300 UNITS/3 ML VIAL SUBQ SCH ×4 (08:50→19:55)
[2020-05-04] MEDS: DilTIAZem CD (24hr) 120 MG CAP.ER.24H PO SCH (08:51)
[2020-05-04] MEDS: Loratadine 10 MG TABLET PO SCH (08:51)
[2020-05-04] MEDS: Furosemide 20 MG TABLET PO SCH (08:51)
[2020-05-04] MEDS: polyethylene glycoL 3350 17 GM POWD.PACK PO SCH (08:51)
[2020-05-04] MEDS: cefTRIAXone 1,000 MG in Water for inj. (sterile) 10 ML IVP SCH (08:52)
[2020-05-04] MEDS: *HR* Rivaroxaban 10 MG TABLET PO SCH (16:28)
[2020-05-04] MEDS: Insulin DETEMIR 100 UNIT/ML X5UNITS SUBQ SCH (20:15)
[2020-05-04] MEDS: Sennosides/Docusate Sodium TABLET PO SCH (20:15)
[2020-05-04] MEDS: Psyllium 1 PACKET POWD.PACK PO SCH (20:15)
[2020-05-05] MEDS: Ipratropium 1 PUFF INHALER IH SCH ×6 (03:48→23:50)
[2020-05-05 07:19] LABS: Hematocrit 52.3 % (37.5-50.1); Hemoglobin 17.4 g/dL (12.9-16.9); Mean Corpuscular HGB Conc 33.3 g/dL (31.6-35.5); Mean Corpuscular Hemoglobin 29.5 pg (28.0-33.3); Mean Corpuscular Volume 88.6 fL (83.0-100.0); Mean Platelet Volume 11.6 fL (9.4-12.4); Platelet Count 196 K/mcL (140-400); Red Cell Distribution Width 13.2 % (11.5-14.5); White Blood Count 15.2 K/mcL (4.3-11.1)
[2020-05-05 07:28] LABS: INR 1.2; Prothrombin Time 14.1 Seconds (9.4-12.1)
[2020-05-05] MEDS: Insulin LISPRO 300 UNITS/3 ML VIAL SUBQ SCH ×4 (07:37→20:56)
[2020-05-05 07:42] LABS: BUN/Creatinine Ratio 38 (6-26); Blood Urea Nitrogen 35 mg/dL (8-23); Calcium 8.6 mg/dL (8.6-10.3); Carbon Dioxide 27 mEq/L (23-29); Chloride 99 mEq/L (98-107); Glucose 127 mg/dL (70-105); Osmolality,Calculated 292 (280-300); Potassium 4.5 mEq/L (3.5-5.1); Sodium 136 mEq/L (136-145); eGFR For African Americans > 60 (> 60); eGFR For Non-African Americans > 60 (> 60)
[2020-05-05] MEDS: Cholecalciferol (D-3) 1,000 UNIT (25MCG) TABLET PO SCH (08:40)
[2020-05-05] MEDS: Loratadine 10 MG TABLET PO SCH (08:41)
[2020-05-05] MEDS: polyethylene glycoL 3350 17 GM POWD.PACK PO SCH (08:41)
[2020-05-05] MEDS: Psyllium 1 PACKET POWD.PACK PO SCH ×3 (08:41→21:01)
[2020-05-05] MEDS: Furosemide 20 MG TABLET PO SCH (08:41)
[2020-05-05] MEDS: Sennosides/Docusate Sodium TABLET PO SCH ×2 (08:41→21:01)
[2020-05-05] MEDS: DilTIAZem CD (24hr) 120 MG CAP.ER.24H PO SCH (08:41)
[2020-05-05] MEDS: cefTRIAXone 1,000 MG in Water for inj. (sterile) 10 ML IVP SCH (08:51)
[2020-05-05] MEDS: *HR* Rivaroxaban 10 MG TABLET PO SCH (17:09)
[2020-05-05] MEDS: Insulin DETEMIR 100 UNIT/ML X5UNITS SUBQ SCH (21:29)
[2020-05-06 01:49] LABS: Hematocrit 50.2 % (37.5-50.1); Hemoglobin 16.3 g/dL (12.9-16.9); Mean Corpuscular HGB Conc 32.5 g/dL (31.6-35.5); Mean Corpuscular Hemoglobin 29.5 pg (28.0-33.3); Mean Corpuscular Volume 90.9 fL (83.0-100.0); Mean Platelet Volume 12.2 fL (9.4-12.4); Platelet Count 179 K/mcL (140-400); Red Blood Count 5.52 M/mcL (4.19-5.50); Red Cell Distribution Width 13.1 % (11.5-14.5); White Blood Count 16.2 K/mcL (4.3-11.1)
[2020-05-06 01:57] LABS: INR 1.4; Prothrombin Time 16.4 Seconds (9.4-12.1)
[2020-05-06 02:15] LABS: BUN/Creatinine Ratio 35 (6-26); Blood Urea Nitrogen 33 mg/dL (8-23); Calcium 8.8 mg/dL (8.6-10.3); Carbon Dioxide 28 mEq/L (23-29); Chloride 99 mEq/L (98-107); Glucose 257 mg/dL (70-105); Osmolality,Calculated 296 (280-300); Potassium 4.4 mEq/L (3.5-5.1); Sodium 135 mEq/L (136-145); eGFR For African Americans > 60 (> 60); eGFR For Non-African Americans > 60 (> 60)
[2020-05-06] MEDS: Ipratropium 1 PUFF INHALER IH SCH ×6 (04:50→23:39)
[2020-05-06] MEDS: Insulin LISPRO 300 UNITS/3 ML VIAL SUBQ SCH ×4 (08:36→20:05)
[2020-05-06] MEDS: Psyllium 1 PACKET POWD.PACK PO SCH ×3 (09:35→20:05)
[2020-05-06] MEDS: DilTIAZem CD (24hr) 120 MG CAP.ER.24H PO SCH (09:35)
[2020-05-06] MEDS: polyethylene glycoL 3350 17 GM POWD.PACK PO SCH (09:35)
[2020-05-06] MEDS: cefTRIAXone 1,000 MG in Water for inj. (sterile) 10 ML IVP SCH (09:36)
[2020-05-06] MEDS: Furosemide 20 MG TABLET PO SCH (09:36)
[2020-05-06] MEDS: Sennosides/Docusate Sodium TABLET PO SCH ×2 (09:36→20:05)
[2020-05-06] MEDS: Cholecalciferol (D-3) 1,000 UNIT (25MCG) TABLET PO SCH (09:36)
[2020-05-06] MEDS: Loratadine 10 MG TABLET PO SCH (09:38)
[2020-05-06] MEDS: *HR* Rivaroxaban 10 MG TABLET PO SCH (17:38)
[2020-05-07] MEDS: Ipratropium 1 PUFF INHALER IH SCH ×6 (03:33→23:55)
[2020-05-07 07:11] LABS: Hematocrit 49.3 % (37.5-50.1); Hemoglobin 16.2 g/dL (12.9-16.9); Mean Corpuscular HGB Conc 32.9 g/dL (31.6-35.5); Mean Corpuscular Hemoglobin 29.3 pg (28.0-33.3); Mean Corpuscular Volume 89.3 fL (83.0-100.0); Mean Platelet Volume 12.2 fL (9.4-12.4); Platelet Count 172 K/mcL (140-400); Red Blood Count 5.52 M/mcL (4.19-5.50); White Blood Count 14.1 K/mcL (4.3-11.1)
[2020-05-07 07:28] LABS: BUN/Creatinine Ratio 33 (6-26); Blood Urea Nitrogen 29 mg/dL (8-23); Carbon Dioxide 33 mEq/L (23-29); Chloride 99 mEq/L (98-107); Glucose 160 mg/dL (70-105); Osmolality,Calculated 293 (280-300); Potassium 4.1 mEq/L (3.5-5.1); Sodium 137 mEq/L (136-145); eGFR For African Americans > 60 (> 60); eGFR For Non-African Americans > 60 (> 60)
[2020-05-07] MEDS: Furosemide 20 MG TABLET PO SCH (07:51)
[2020-05-07] MEDS: Cholecalciferol (D-3) 1,000 UNIT (25MCG) TABLET PO SCH (07:51)
[2020-05-07] MEDS: Sennosides/Docusate Sodium TABLET PO SCH ×2 (07:51→20:31)
[2020-05-07] MEDS: Loratadine 10 MG TABLET PO SCH (07:51)
[2020-05-07] MEDS: DilTIAZem CD (24hr) 120 MG CAP.ER.24H PO SCH (07:51)
[2020-05-07] MEDS: Psyllium 1 PACKET POWD.PACK PO SCH ×3 (07:52→20:30)
[2020-05-07] MEDS: cefTRIAXone 1,000 MG in Water for inj. (sterile) 10 ML IVP SCH (07:52)
[2020-05-07] MEDS: Insulin LISPRO 300 UNITS/3 ML VIAL SUBQ SCH ×4 (07:52→20:31)
[2020-05-07] MEDS: polyethylene glycoL 3350 17 GM POWD.PACK PO SCH (07:52)
[2020-05-07] MEDS: *HR* Rivaroxaban 10 MG TABLET PO SCH (16:26)
[2020-05-07] MEDS: Acetaminophen 325 MG TABLET PO PRN (18:32)
[2020-05-08] MEDS: Ipratropium 1 PUFF INHALER IH SCH ×5 (04:27→20:43)
[2020-05-08] MEDS: Furosemide 20 MG TABLET PO SCH (09:18)
[2020-05-08] MEDS: polyethylene glycoL 3350 17 GM POWD.PACK PO SCH (09:18)
[2020-05-08] MEDS: Sennosides/Docusate Sodium TABLET PO SCH ×2 (09:18→20:49)
[2020-05-08] MEDS: DilTIAZem CD (24hr) 120 MG CAP.ER.24H PO SCH (09:18)
[2020-05-08] MEDS: Cholecalciferol (D-3) 1,000 UNIT (25MCG) TABLET PO SCH (09:18)
[2020-05-08] MEDS: Psyllium 1 PACKET POWD.PACK PO SCH ×3 (09:18→20:49)
[2020-05-08] MEDS: Insulin LISPRO 300 UNITS/3 ML VIAL SUBQ SCH ×4 (09:19→20:49)
[2020-05-08] MEDS: *HR* Rivaroxaban 10 MG TABLET PO SCH (17:56)
[2020-05-08] MEDS: Acetaminophen 325 MG TABLET PO PRN (21:02)
[2020-05-09] MEDS: Ipratropium 1 PUFF INHALER IH SCH ×7 (00:22→23:09)
[2020-05-09 05:09] LABS: Basophils % 0.2 %; Eosinophils # 0.5 K/mcL (0.0-0.6); Eosinophils % 4.2 %; Hematocrit 44.8 % (37.5-50.1); Hemoglobin 14.7 g/dL (12.9-16.9); Immature Granulocytes % 0.6 % (0-4); Lymphocytes # 1.4 K/mcL (0.6-4.6); Lymphocytes % 13.1 %; Mean Corpuscular HGB Conc 32.8 g/dL (31.6-35.5); Mean Corpuscular Hemoglobin 29.2 pg (28.0-33.3); Mean Corpuscular Volume 89.1 fL (83.0-100.0); Mean Platelet Volume 11.7 fL (9.4-12.4); Monocytes # 0.9 K/mcL (0.0-1.3); Monocytes % 8.5 %; Platelet Count 152 K/mcL (140-400); Red Blood Count 5.03 M/mcL (4.19-5.50); Red Cell Distribution Width 13.1 % (11.5-14.5); Segmented Neutrophils % 73.4 %; White Blood Count 10.9 K/mcL (4.3-11.1)
[2020-05-09 05:28] LABS: BUN/Creatinine Ratio 24 (6-26); Blood Urea Nitrogen 20 mg/dL (8-23); Calcium 8.4 mg/dL (8.6-10.3); Carbon Dioxide 29 mEq/L (23-29); Chloride 100 mEq/L (98-107); Glucose 116 mg/dL (70-105); Osmolality,Calculated 282 (280-300); Potassium 4.1 mEq/L (3.5-5.1); Sodium 134 mEq/L (136-145); eGFR For African Americans > 60 (> 60); eGFR For Non-African Americans > 60 (> 60)
[2020-05-09] MEDS: Insulin LISPRO 300 UNITS/3 ML VIAL SUBQ SCH ×4 (07:42→21:02)
[2020-05-09] MEDS: Cholecalciferol (D-3) 1,000 UNIT (25MCG) TABLET PO SCH (07:50)
[2020-05-09] MEDS: DilTIAZem CD (24hr) 120 MG CAP.ER.24H PO SCH (07:50)
[2020-05-09] MEDS: Furosemide 20 MG TABLET PO SCH ×2 (07:50→17:07)
[2020-05-09] MEDS: Psyllium 1 PACKET POWD.PACK PO SCH ×3 (07:51→21:02)
[2020-05-09] MEDS: Sennosides/Docusate Sodium TABLET PO SCH ×2 (07:51→21:02)
[2020-05-09] MEDS: polyethylene glycoL 3350 17 GM POWD.PACK PO SCH (07:51)
[2020-05-09] MEDS: *HR* Rivaroxaban 10 MG TABLET PO SCH (17:07)
[2020-05-09] MEDS: Acetaminophen 325 MG TABLET PO PRN (21:09)
[2020-05-10] MEDS: Ipratropium 1 PUFF INHALER IH SCH ×6 (04:13→23:56)
[2020-05-10 06:43] LABS: BUN/Creatinine Ratio 20 (6-26); Blood Urea Nitrogen 18 mg/dL (8-23); Calcium 8.8 mg/dL (8.6-10.3); Carbon Dioxide 31 mEq/L (23-29); Chloride 99 mEq/L (98-107); Glucose 128 mg/dL (70-105); Osmolality,Calculated 282 (280-300); Potassium 4.1 mEq/L (3.5-5.1); Sodium 134 mEq/L (136-145); eGFR For African Americans > 60 (> 60); eGFR For Non-African Americans > 60 (> 60)
[2020-05-10] MEDS: Insulin LISPRO 300 UNITS/3 ML VIAL SUBQ SCH ×4 (07:56→19:49)
[2020-05-10] MEDS: Psyllium 1 PACKET POWD.PACK PO SCH ×3 (07:57→19:48)
[2020-05-10] MEDS: Sennosides/Docusate Sodium TABLET PO SCH ×2 (07:57→19:48)
[2020-05-10] MEDS: DilTIAZem CD (24hr) 120 MG CAP.ER.24H PO SCH (07:57)
[2020-05-10] MEDS: polyethylene glycoL 3350 17 GM POWD.PACK PO SCH (07:57)
[2020-05-10] MEDS: Cholecalciferol (D-3) 1,000 UNIT (25MCG) TABLET PO SCH (07:57)
[2020-05-10] MEDS: Furosemide 20 MG TABLET PO SCH ×2 (07:57→16:54)
[2020-05-10] MEDS: Acetaminophen 325 MG TABLET PO PRN ×2 (08:03→20:00)
[2020-05-10] MEDS: *HR* Rivaroxaban 10 MG TABLET PO SCH (16:54)
[2020-05-11 04:07] LABS: BUN/Creatinine Ratio 26 (6-26); Blood Urea Nitrogen 20 mg/dL (8-23); Calcium 8.9 mg/dL (8.6-10.3); Carbon Dioxide 29 mEq/L (23-29); Chloride 100 mEq/L (98-107); Glucose 124 mg/dL (70-105); Osmolality,Calculated 284 (280-300); Potassium 3.9 mEq/L (3.5-5.1); Sodium 135 mEq/L (136-145); eGFR For African Americans > 60 (> 60); eGFR For Non-African Americans > 60 (> 60)
[2020-05-11] MEDS: Ipratropium 1 PUFF INHALER IH SCH ×5 (04:20→20:09)
[2020-05-11] MEDS: Acetaminophen 325 MG TABLET PO PRN ×2 (04:28→13:21)
[2020-05-11] MEDS: Insulin LISPRO 300 UNITS/3 ML VIAL SUBQ SCH ×4 (08:10→21:34)
[2020-05-11] MEDS: Cholecalciferol (D-3) 1,000 UNIT (25MCG) TABLET PO SCH (09:25)
[2020-05-11] MEDS: Furosemide 20 MG TABLET PO SCH ×2 (09:25→17:55)
[2020-05-11] MEDS: Sennosides/Docusate Sodium TABLET PO SCH ×3 (09:25→21:34)
[2020-05-11] MEDS: polyethylene glycoL 3350 17 GM POWD.PACK PO SCH (09:26)
[2020-05-11] MEDS: DilTIAZem CD (24hr) 120 MG CAP.ER.24H PO SCH (09:26)
[2020-05-11] MEDS: Psyllium 1 PACKET POWD.PACK PO SCH ×4 (09:26→21:34)
[2020-05-11] MEDS: *HR* Rivaroxaban 10 MG TABLET PO SCH (17:55)
[2020-05-12] MEDS: Ipratropium 1 PUFF INHALER IH SCH ×6 (00:01→20:32)
[2020-05-12 03:00] LABS: BUN/Creatinine Ratio 27 (6-26); Blood Urea Nitrogen 21 mg/dL (8-23); Calcium 8.7 mg/dL (8.6-10.3); Carbon Dioxide 30 mEq/L (23-29); Chloride 97 mEq/L (98-107); Glucose 147 mg/dL (70-105); Osmolality,Calculated 282 (280-300); Potassium 3.8 mEq/L (3.5-5.1); Sodium 133 mEq/L (136-145); eGFR For African Americans > 60 (> 60); eGFR For Non-African Americans > 60 (> 60)
[2020-05-12] MEDS: Acetaminophen 325 MG TABLET PO PRN (05:33)
[2020-05-12] MEDS: Insulin LISPRO 300 UNITS/3 ML VIAL SUBQ SCH ×4 (09:04→22:05)
[2020-05-12] MEDS: DilTIAZem CD (24hr) 120 MG CAP.ER.24H PO SCH (09:06)
[2020-05-12] MEDS: Sennosides/Docusate Sodium TABLET PO SCH ×2 (09:06→22:24)
[2020-05-12] MEDS: polyethylene glycoL 3350 17 GM POWD.PACK PO SCH (09:06)
[2020-05-12] MEDS: Furosemide 20 MG TABLET PO SCH ×2 (09:06→18:23)
[2020-05-12] MEDS: Psyllium 1 PACKET POWD.PACK PO SCH ×3 (09:06→22:24)
[2020-05-12] MEDS: Cholecalciferol (D-3) 1,000 UNIT (25MCG) TABLET PO SCH (09:06)
[2020-05-12] MEDS: *HR* HYDROcodone/Acet 5/325 mg TABLET PO PRN ×2 (12:35→23:51)
[2020-05-12] MEDS: Saline Nasal Spray 44 ML BOTTLE NS PRN (12:35)
[2020-05-12] MEDS: *HR* Rivaroxaban 10 MG TABLET PO SCH (18:23)
[2020-05-13] MEDS: Ipratropium 1 PUFF INHALER IH SCH ×7 (00:49→23:17)
[2020-05-13 07:32] LABS: BUN/Creatinine Ratio 20 (6-26); Blood Urea Nitrogen 14 mg/dL (8-23); Calcium 8.7 mg/dL (8.6-10.3); Carbon Dioxide 28 mEq/L (23-29); Chloride 97 mEq/L (98-107); Glucose 115 mg/dL (70-105); Osmolality,Calculated 277 (280-300); Potassium 3.9 mEq/L (3.5-5.1); Sodium 133 mEq/L (136-145); eGFR For African Americans > 60 (> 60); eGFR For Non-African Americans > 60 (> 60)
[2020-05-13] MEDS: Insulin LISPRO 300 UNITS/3 ML VIAL SUBQ SCH ×4 (08:21→21:52)
[2020-05-13] MEDS: Cholecalciferol (D-3) 1,000 UNIT (25MCG) TABLET PO SCH (09:27)
[2020-05-13] MEDS: Sennosides/Docusate Sodium TABLET PO SCH ×2 (09:27→21:52)
[2020-05-13] MEDS: polyethylene glycoL 3350 17 GM POWD.PACK PO SCH (09:28)
[2020-05-13] MEDS: Furosemide 20 MG TABLET PO SCH ×2 (09:28→18:26)
[2020-05-13] MEDS: Psyllium 1 PACKET POWD.PACK PO SCH ×3 (09:28→21:52)
[2020-05-13] MEDS: DilTIAZem CD (24hr) 120 MG CAP.ER.24H PO SCH (09:28)
[2020-05-13] MEDS: *HR* HYDROcodone/Acet 5/325 mg TABLET PO PRN ×2 (09:37→21:47)
[2020-05-13 10:07] LABS: Basophils % 0.5 %; Eosinophils # 0.7 K/mcL (0.0-0.6); Eosinophils % 8.6 %; Hematocrit 38.6 % (37.5-50.1); Hemoglobin 12.8 g/dL (12.9-16.9); Immature Granulocytes % 0.6 % (0-4); Immature Platelets 4.9 % (1.1-6.1); Lymphocytes % 12.8 %; Mean Corpuscular HGB Conc 33.2 g/dL (31.6-35.5); Mean Corpuscular Hemoglobin 29.6 pg (28.0-33.3); Mean Corpuscular Volume 89.1 fL (83.0-100.0); Monocytes % 12.1 %; Platelet Count 136 K/mcL (140-400); Red Blood Count 4.33 M/mcL (4.19-5.50); Segmented Neutrophils % 65.4 %; White Blood Count 7.9 K/mcL (4.3-11.1)
[2020-05-13 10:08] LABS: Neutrophils # 5.2 K/mcL (1.6-8.9)
[2020-05-13] MEDS: *HR* Rivaroxaban 10 MG TABLET PO SCH (18:26)
[2020-05-14] MEDS: Ipratropium 1 PUFF INHALER IH SCH ×6 (03:54→23:44)
[2020-05-14 06:28] LABS: BUN/Creatinine Ratio 19 (6-26); Blood Urea Nitrogen 15 mg/dL (8-23); Calcium 8.7 mg/dL (8.6-10.3); Carbon Dioxide 30 mEq/L (23-29); Chloride 97 mEq/L (98-107); Glucose 119 mg/dL (70-105); Osmolality,Calculated 278 (280-300); Potassium 3.9 mEq/L (3.5-5.1); Sodium 133 mEq/L (136-145); eGFR For African Americans > 60 (> 60); eGFR For Non-African Americans > 60 (> 60)
[2020-05-14] MEDS: Insulin LISPRO 300 UNITS/3 ML VIAL SUBQ SCH ×4 (08:51→20:24)
[2020-05-14] MEDS: Furosemide 20 MG TABLET PO SCH ×2 (08:52→17:06)
[2020-05-14] MEDS: Cholecalciferol (D-3) 1,000 UNIT (25MCG) TABLET PO SCH (08:52)
[2020-05-14] MEDS: Psyllium 1 PACKET POWD.PACK PO SCH ×3 (08:53→22:09)
[2020-05-14] MEDS: DilTIAZem CD (24hr) 120 MG CAP.ER.24H PO SCH (08:53)
[2020-05-14] MEDS: polyethylene glycoL 3350 17 GM POWD.PACK PO SCH (08:53)
[2020-05-14] MEDS: Sennosides/Docusate Sodium TABLET PO SCH ×2 (08:53→22:09)
[2020-05-14] MEDS: *HR* HYDROcodone/Acet 5/325 mg TABLET PO PRN ×2 (09:09→22:07)
[2020-05-14] MEDS: *HR* Rivaroxaban 10 MG TABLET PO SCH (17:06)
[2020-05-15 02:57] LABS: BUN/Creatinine Ratio 24 (6-26); Blood Urea Nitrogen 16 mg/dL (8-23); Carbon Dioxide 25 mEq/L (23-29); Chloride 98 mEq/L (98-107); Glucose 103 mg/dL (70-105); Osmolality,Calculated 277 (280-300); Sodium 133 mEq/L (136-145); eGFR For African Americans > 60 (> 60); eGFR For Non-African Americans > 60 (> 60)
[2020-05-15] MEDS: Ipratropium 1 PUFF INHALER IH SCH ×5 (04:37→20:38)
[2020-05-15] MEDS: DilTIAZem CD (24hr) 120 MG CAP.ER.24H PO SCH (09:36)
[2020-05-15] MEDS: Furosemide 20 MG TABLET PO SCH (09:36)
[2020-05-15] MEDS: polyethylene glycoL 3350 17 GM POWD.PACK PO SCH (09:37)
[2020-05-15] MEDS: Sennosides/Docusate Sodium TABLET PO SCH ×2 (09:37→20:41)
[2020-05-15] MEDS: Cholecalciferol (D-3) 1,000 UNIT (25MCG) TABLET PO SCH (09:37)
[2020-05-15] MEDS: Psyllium 1 PACKET POWD.PACK PO SCH (09:37)
[2020-05-15] MEDS: Insulin LISPRO 300 UNITS/3 ML VIAL SUBQ SCH ×4 (09:39→20:42)
[2020-05-15] MEDS ORDERED: polyethylene glycoL 3350 17 GM POWD.PACK PO PRN (14:51)
[2020-05-15] MEDS ORDERED: Psyllium 1 PACKET POWD.PACK PO PRN (14:51)
[2020-05-15] MEDS: Saline Nasal Spray 44 ML BOTTLE NS PRN (15:00)
[2020-05-15] MEDS: *HR* Rivaroxaban 10 MG TABLET PO SCH (17:03)
[2020-05-15 17:37] LABS: Hematocrit 39.5 % (37.5-50.1); Hemoglobin 12.9 g/dL (12.9-16.9)
[2020-05-15] MEDS: *HR* HYDROcodone/Acet 5/325 mg TABLET PO PRN (20:41)
[2020-05-15] MEDS: Artificial Tears SOLN 15 ML BOTTLE BOTH EYES SCH (20:44)
[2020-05-16] MEDS: Ipratropium 1 PUFF INHALER IH SCH ×7 (00:29→23:43)
[2020-05-16 03:30] LABS: Hematocrit 37.4 % (37.5-50.1); Hemoglobin 12.2 g/dL (12.9-16.9); Mean Corpuscular HGB Conc 32.6 g/dL (31.6-35.5); Mean Corpuscular Hemoglobin 28.4 pg (28.0-33.3); Mean Corpuscular Volume 87.2 fL (83.0-100.0); Mean Platelet Volume 10.6 fL (9.4-12.4); Platelet Count 153 K/mcL (140-400); Red Blood Count 4.29 M/mcL (4.19-5.50); Red Cell Distribution Width 12.8 % (11.5-14.5); White Blood Count 6.4 K/mcL (4.3-11.1)
[2020-05-16 03:46] LABS: Blood Urea Nitrogen 13 mg/dL (8-23); Calcium 8.9 mg/dL (8.6-10.3); Carbon Dioxide 28 mEq/L (23-29); Chloride 99 mEq/L (98-107); Glucose 138 mg/dL (70-105); Magnesium 1.9 mg/dL (1.6-2.6); Osmolality,Calculated 280 (280-300); Phosphorous 3.8 mg/dL (2.7-4.5); Potassium 3.9 mEq/L (3.5-5.1); Sodium 134 mEq/L (136-145)
[2020-05-16 04:31] LABS: BUN/Creatinine Ratio 18 (6-26); eGFR For African Americans > 60 (> 60); eGFR For Non-African Americans > 60 (> 60)
[2020-05-16] MEDS: Multivit/Ca/Min/Fe/FA 1 TAB TABLET PO SCH (08:15)
[2020-05-16] MEDS: Sennosides/Docusate Sodium TABLET PO SCH ×2 (08:15→21:14)
[2020-05-16] MEDS: DilTIAZem CD (24hr) 120 MG CAP.ER.24H PO SCH (08:15)
[2020-05-16] MEDS: Cholecalciferol (D-3) 1,000 UNIT (25MCG) TABLET PO SCH (08:15)
[2020-05-16] MEDS: Insulin LISPRO 300 UNITS/3 ML VIAL SUBQ SCH ×4 (08:17→21:29)
[2020-05-16] MEDS: Artificial Tears SOLN 15 ML BOTTLE BOTH EYES SCH ×2 (08:19→21:28)
[2020-05-16] MEDS: Saline Nasal Spray 44 ML BOTTLE NS PRN (08:19)
[2020-05-16] MEDS: *HR* Rivaroxaban 10 MG TABLET PO SCH (16:34)
[2020-05-16] MEDS: Melatonin 3 MG TABLET PO PRN (21:14)
[2020-05-16] MEDS: *HR* HYDROcodone/Acet 5/325 mg TABLET PO PRN (21:14)
[2020-05-17] MEDS: Ipratropium 1 PUFF INHALER IH SCH ×4 (04:04→22:41)
[2020-05-17 04:19] LABS: ABG Base Excess 4 mEq/L (-2 to 3); ABG HCO3 28 mEq/L (21-27); ABG Oxygen Saturation 91 % (95-98); ABG PCO2 41 mmHg (35-45); ABG PH 7.45 pH Units (7.32-7.45); ABG PO2 57 mmHg (85-104); ABG TCO2 30 mEq/L (20-26)
[2020-05-17 04:26] LABS: Hematocrit 34.4 % (37.5-50.1); Hemoglobin 11.5 g/dL (12.9-16.9); Mean Corpuscular HGB Conc 33.4 g/dL (31.6-35.5); Mean Corpuscular Volume 86.6 fL (83.0-100.0); Mean Platelet Volume 10.6 fL (9.4-12.4); Platelet Count 163 K/mcL (140-400); Red Blood Count 3.97 M/mcL (4.19-5.50); Red Cell Distribution Width 12.8 % (11.5-14.5); White Blood Count 5.4 K/mcL (4.3-11.1)
[2020-05-17 04:43] LABS: BUN/Creatinine Ratio 12 (6-26); Blood Urea Nitrogen 9 mg/dL (8-23); Calcium 8.5 mg/dL (8.6-10.3); Carbon Dioxide 29 mEq/L (23-29); Chloride 98 mEq/L (98-107); Glucose 120 mg/dL (70-105); Magnesium 1.9 mg/dL (1.6-2.6); Osmolality,Calculated 276 (280-300); Phosphorous 3.7 mg/dL (2.7-4.5); Potassium 3.9 mEq/L (3.5-5.1); Sodium 133 mEq/L (136-145); eGFR For African Americans > 60 (> 60); eGFR For Non-African Americans > 60 (> 60)
[2020-05-17] MEDS: Sennosides/Docusate Sodium TABLET PO SCH ×2 (09:20→20:16)
[2020-05-17] MEDS: Multivit/Ca/Min/Fe/FA 1 TAB TABLET PO SCH (09:20)
[2020-05-17] MEDS: DilTIAZem CD (24hr) 120 MG CAP.ER.24H PO SCH (09:20)
[2020-05-17] MEDS: Calcium Gluconate 1gm/50mL 1 GM/50 ML BAG IVPB SCH ×2 (09:21→10:19)
[2020-05-17] MEDS: Artificial Tears SOLN 15 ML BOTTLE BOTH EYES SCH ×2 (09:21→20:17)
[2020-05-17] MEDS: Cholecalciferol (D-3) 1,000 UNIT (25MCG) TABLET PO SCH (09:21)
[2020-05-17] MEDS: Furosemide 20 MG TABLET PO SCH (09:21)
[2020-05-17] MEDS: Insulin LISPRO 300 UNITS/3 ML VIAL SUBQ SCH ×4 (09:28→20:09)
[2020-05-17] MEDS ORDERED: Ipratropium 1 PUFF INHALER IH PRN (15:00)
[2020-05-17] MEDS ORDERED: *HR* LORazepam 0.5 MG TABLET PO ONE (16:03)
[2020-05-17] MEDS: *HR* Rivaroxaban 10 MG TABLET PO SCH (17:18)
[2020-05-17] MEDS: *HR* HYDROcodone/Acet 5/325 mg TABLET PO PRN (17:24)
[2020-05-18] MEDS: Ipratropium 1 PUFF INHALER IH SCH ×4 (03:40→21:57)
[2020-05-18 06:00] LABS: BUN/Creatinine Ratio 15 (6-26); Blood Urea Nitrogen 10 mg/dL (8-23); Calcium 8.7 mg/dL (8.6-10.3); Carbon Dioxide 27 mEq/L (23-29); Chloride 99 mEq/L (98-107); Glucose 122 mg/dL (70-105); Magnesium 2.1 mg/dL (1.6-2.6); Osmolality,Calculated 274 (280-300); Phosphorous 3.3 mg/dL (2.7-4.5); Potassium 4.1 mEq/L (3.5-5.1); Sodium 132 mEq/L (136-145); eGFR For African Americans > 60 (> 60); eGFR For Non-African Americans > 60 (> 60)
[2020-05-18 06:10] LABS: Hematocrit 35.1 % (37.5-50.1); Hemoglobin 11.7 g/dL (12.9-16.9); Mean Corpuscular HGB Conc 33.3 g/dL (31.6-35.5); Mean Corpuscular Hemoglobin 29.4 pg (28.0-33.3); Mean Corpuscular Volume 88.2 fL (83.0-100.0); Mean Platelet Volume 10.8 fL (9.4-12.4); Platelet Count 206 K/mcL (140-400); Red Blood Count 3.98 M/mcL (4.19-5.50); Red Cell Distribution Width 12.6 % (11.5-14.5); White Blood Count 6.3 K/mcL (4.3-11.1)
[2020-05-18] MEDS ORDERED: *HR* Vasopressin 20 UNIT/ML VIAL ONE (07:36)
[2020-05-18] MEDS ORDERED: *HR* Norepinephrine 4 MG/4 ML VIAL IVC ONE (07:36)
[2020-05-18] MEDS ORDERED: Ketamine *HR* 500 MG/10 ML MDV ONE (07:37)
[2020-05-18] MEDS: Insulin LISPRO 300 UNITS/3 ML VIAL SUBQ SCH ×4 (09:00→20:28)
[2020-05-18] MEDS: DilTIAZem CD (24hr) 120 MG CAP.ER.24H PO SCH (10:29)
[2020-05-18] MEDS: Sennosides/Docusate Sodium TABLET PO SCH ×2 (10:29→20:28)
[2020-05-18] MEDS: Furosemide 20 MG TABLET PO SCH (10:29)
[2020-05-18] MEDS: Artificial Tears SOLN 15 ML BOTTLE BOTH EYES SCH ×2 (10:29→20:34)
[2020-05-18] MEDS: Multivit/Ca/Min/Fe/FA 1 TAB TABLET PO SCH (10:29)
[2020-05-18] MEDS: Cholecalciferol (D-3) 1,000 UNIT (25MCG) TABLET PO SCH (10:29)
[2020-05-18] MEDS: *HR* HYDROcodone/Acet 5/325 mg TABLET PO PRN ×2 (13:39→20:29)
[2020-05-18] MEDS: *HR* Rivaroxaban 10 MG TABLET PO SCH (16:58)
[2020-05-18] MEDS: Melatonin 3 MG TABLET PO PRN (20:29)
[2020-05-18] MEDS ORDERED: Saliva Stimulant 44.3ml BOTTLE PO PRN (22:23)
[2020-05-19] MEDS: Ipratropium 1 PUFF INHALER IH SCH ×4 (04:03→22:21)
[2020-05-19 05:29] LABS: Hematocrit 35.4 % (37.5-50.1); Hemoglobin 11.6 g/dL (12.9-16.9); Mean Corpuscular HGB Conc 32.8 g/dL (31.6-35.5); Mean Corpuscular Hemoglobin 29.2 pg (28.0-33.3); Mean Corpuscular Volume 89.2 fL (83.0-100.0); Mean Platelet Volume 10.3 fL (9.4-12.4); Platelet Count 253 K/mcL (140-400); Red Blood Count 3.97 M/mcL (4.19-5.50); Red Cell Distribution Width 12.6 % (11.5-14.5); White Blood Count 5.5 K/mcL (4.3-11.1)
[2020-05-19 05:49] LABS: BUN/Creatinine Ratio 17 (6-26); Blood Urea Nitrogen 12 mg/dL (8-23); Calcium 8.5 mg/dL (8.6-10.3); Carbon Dioxide 28 mEq/L (23-29); Chloride 99 mEq/L (98-107); Glucose 110 mg/dL (70-105); Osmolality,Calculated 276 (280-300); Phosphorous 3.3 mg/dL (2.7-4.5); Sodium 133 mEq/L (136-145); eGFR For African Americans > 60 (> 60); eGFR For Non-African Americans > 60 (> 60)
[2020-05-19 05:52] LABS: % Iron Saturation 13 % (20-55); Iron 28 mcg/dL (65-175); Transferrin 153 mg/dL (203-362)
[2020-05-19 06:10] LABS: Ferritin 745 ng/mL (20-250)
[2020-05-19 06:15] LABS: Folate 16.5 ng/mL (3.0-16.0)
[2020-05-19 06:23] LABS: Vitamin B12 > 1500 pg/mL (250-1100)
[2020-05-19] MEDS ORDERED: Iron Sucrose Complex 400 MG in 0.9 % Sodium Chloride 250 ML IVPB ONE (08:28)
[2020-05-19] MEDS: Insulin LISPRO 300 UNITS/3 ML VIAL SUBQ SCH ×4 (08:43→20:47)
[2020-05-19] MEDS: Multivit/Ca/Min/Fe/FA 1 TAB TABLET PO SCH (08:46)
[2020-05-19] MEDS: Furosemide 20 MG TABLET PO SCH (08:46)
[2020-05-19] MEDS: Cholecalciferol (D-3) 1,000 UNIT (25MCG) TABLET PO SCH (08:46)
[2020-05-19] MEDS: DilTIAZem CD (24hr) 120 MG CAP.ER.24H PO SCH (08:46)
[2020-05-19] MEDS: GuaiFENesin/Dextromethorphan TABLET PO PRN (08:46)
[2020-05-19] MEDS: Sennosides/Docusate Sodium TABLET PO SCH ×2 (08:46→20:47)
[2020-05-19] MEDS: *HR* LORazepam 0.5 MG TABLET PO PRN ×2 (08:53→16:45)
[2020-05-19] MEDS: Calcium Gluconate 1gm/50mL 1 GM/50 ML BAG IVPB SCH ×2 (08:56→10:15)
[2020-05-19] MEDS: Artificial Tears SOLN 15 ML BOTTLE BOTH EYES SCH ×2 (09:26→20:47)
[2020-05-19] MEDS: *HR* Rivaroxaban 10 MG TABLET PO SCH (17:47)
[2020-05-19] MEDS: *HR* HYDROcodone/Acet 5/325 mg TABLET PO PRN (17:53)
[2020-05-19] MEDS: Melatonin 3 MG TABLET PO PRN (20:47)
[2020-05-20] MEDS: Ipratropium 1 PUFF INHALER IH SCH ×4 (04:37→19:46)
[2020-05-20 05:27] LABS: Hematocrit 34.2 % (37.5-50.1); Hemoglobin 11.3 g/dL (12.9-16.9); Mean Corpuscular Volume 87.9 fL (83.0-100.0); Mean Platelet Volume 9.7 fL (9.4-12.4); Platelet Count 275 K/mcL (140-400); Red Blood Count 3.89 M/mcL (4.19-5.50); Red Cell Distribution Width 12.7 % (11.5-14.5); White Blood Count 5.7 K/mcL (4.3-11.1)
[2020-05-20 05:47] LABS: BUN/Creatinine Ratio 14 (6-26); Blood Urea Nitrogen 9 mg/dL (8-23); Calcium 8.4 mg/dL (8.6-10.3); Carbon Dioxide 27 mEq/L (23-29); Chloride 101 mEq/L (98-107); Glucose 116 mg/dL (70-105); Osmolality,Calculated 278 (280-300); Phosphorous 3.5 mg/dL (2.7-4.5); Sodium 134 mEq/L (136-145); eGFR For African Americans > 60 (> 60); eGFR For Non-African Americans > 60 (> 60)
[2020-05-20] MEDS: Calcium Gluconate 1gm/50mL 1 GM/50 ML BAG IVPB SCH ×2 (09:24→11:06)
[2020-05-20] MEDS: Furosemide 20 MG TABLET PO SCH (09:31)
[2020-05-20] MEDS: Multivit/Ca/Min/Fe/FA 1 TAB TABLET PO SCH (09:31)
[2020-05-20] MEDS: Sennosides/Docusate Sodium TABLET PO SCH ×2 (09:31→22:14)
[2020-05-20] MEDS: DilTIAZem CD (24hr) 120 MG CAP.ER.24H PO SCH (09:31)
[2020-05-20] MEDS: Cholecalciferol (D-3) 1,000 UNIT (25MCG) TABLET PO SCH (09:31)
[2020-05-20] MEDS: Insulin LISPRO 300 UNITS/3 ML VIAL SUBQ SCH ×4 (09:48→22:15)
[2020-05-20] MEDS: Artificial Tears SOLN 15 ML BOTTLE BOTH EYES SCH ×2 (09:49→22:15)
[2020-05-20] MEDS: *HR* Rivaroxaban 10 MG TABLET PO SCH (18:49)
[2020-05-20] MEDS: Melatonin 3 MG TABLET PO PRN (22:13)
[2020-05-20] MEDS: *HR* HYDROcodone/Acet 5/325 mg TABLET PO PRN (22:13)
[2020-05-21] MEDS: Ipratropium 1 PUFF INHALER IH SCH ×4 (03:46→21:27)
[2020-05-21] MEDS: Cholecalciferol (D-3) 1,000 UNIT (25MCG) TABLET PO SCH (07:37)
[2020-05-21] MEDS: DilTIAZem CD (24hr) 120 MG CAP.ER.24H PO SCH (07:37)
[2020-05-21] MEDS: Multivit/Ca/Min/Fe/FA 1 TAB TABLET PO SCH (07:37)
[2020-05-21] MEDS: Sennosides/Docusate Sodium TABLET PO SCH ×2 (07:37→21:18)
[2020-05-21] MEDS: Artificial Tears SOLN 15 ML BOTTLE BOTH EYES SCH ×2 (07:41→21:20)
[2020-05-21] MEDS: Insulin LISPRO 300 UNITS/3 ML VIAL SUBQ SCH ×4 (07:44→21:20)
[2020-05-21] MEDS: *HR* Rivaroxaban 10 MG TABLET PO SCH (18:29)
[2020-05-21] MEDS: *HR* HYDROcodone/Acet 5/325 mg TABLET PO PRN (21:19)
[2020-05-21] MEDS: Melatonin 3 MG TABLET PO PRN (21:19)
[2020-05-22 03:28] LABS: Hematocrit 35.3 % (37.5-50.1); Hemoglobin 11.6 g/dL (12.9-16.9); Mean Corpuscular HGB Conc 32.9 g/dL (31.6-35.5); Mean Corpuscular Hemoglobin 28.6 pg (28.0-33.3); Mean Corpuscular Volume 87.2 fL (83.0-100.0); Mean Platelet Volume 9.9 fL (9.4-12.4); Platelet Count 359 K/mcL (140-400); Red Blood Count 4.05 M/mcL (4.19-5.50); Red Cell Distribution Width 12.7 % (11.5-14.5); White Blood Count 6.1 K/mcL (4.3-11.1)
[2020-05-22 03:35] LABS: BUN/Creatinine Ratio 17 (6-26); Blood Urea Nitrogen 11 mg/dL (8-23); Calcium 9.1 mg/dL (8.6-10.3); Carbon Dioxide 30 mEq/L (23-29); Chloride 100 mEq/L (98-107); Glucose 112 mg/dL (70-105); Osmolality,Calculated 282 (280-300); Phosphorous 3.8 mg/dL (2.7-4.5); Potassium 4.2 mEq/L (3.5-5.1); Sodium 136 mEq/L (136-145); eGFR For African Americans > 60 (> 60); eGFR For Non-African Americans > 60 (> 60)
[2020-05-22] MEDS: Ipratropium 1 PUFF INHALER IH SCH ×5 (04:22→22:40)
[2020-05-22] MEDS: Insulin LISPRO 300 UNITS/3 ML VIAL SUBQ SCH ×4 (08:07→20:01)
[2020-05-22] MEDS: Cholecalciferol (D-3) 1,000 UNIT (25MCG) TABLET PO SCH (08:11)
[2020-05-22] MEDS: Artificial Tears SOLN 15 ML BOTTLE BOTH EYES SCH ×2 (08:11→20:57)
[2020-05-22] MEDS: Sennosides/Docusate Sodium TABLET PO SCH ×2 (08:11→20:03)
[2020-05-22] MEDS: Multivit/Ca/Min/Fe/FA 1 TAB TABLET PO SCH (08:11)
[2020-05-22] MEDS: DilTIAZem CD (24hr) 120 MG CAP.ER.24H PO SCH (08:11)
[2020-05-22] MEDS: *HR* Rivaroxaban 10 MG TABLET PO SCH (17:18)
[2020-05-22] MEDS: *HR* HYDROcodone/Acet 5/325 mg TABLET PO PRN (20:03)
[2020-05-23] MEDS: Ipratropium 1 PUFF INHALER IH SCH ×4 (04:22→22:16)
[2020-05-23] MEDS: Multivit/Ca/Min/Fe/FA 1 TAB TABLET PO SCH (09:39)
[2020-05-23] MEDS: DilTIAZem CD (24hr) 120 MG CAP.ER.24H PO SCH (09:40)
[2020-05-23] MEDS: Sennosides/Docusate Sodium TABLET PO SCH ×2 (09:40→20:26)
[2020-05-23] MEDS: Cholecalciferol (D-3) 1,000 UNIT (25MCG) TABLET PO SCH (09:40)
[2020-05-23] MEDS: Insulin LISPRO 300 UNITS/3 ML VIAL SUBQ SCH ×4 (10:00→20:17)
[2020-05-23] MEDS: Artificial Tears SOLN 15 ML BOTTLE BOTH EYES SCH ×2 (15:57→20:32)
[2020-05-23] MEDS: *HR* Rivaroxaban 10 MG TABLET PO SCH (17:24)
[2020-05-23] MEDS: *HR* HYDROcodone/Acet 5/325 mg TABLET PO PRN (20:26)
[2020-05-24] MEDS: Melatonin 3 MG TABLET PO PRN ×2 (00:52→21:02)
[2020-05-24] MEDS: Ipratropium 1 PUFF INHALER IH SCH ×4 (03:56→22:59)
[2020-05-24] MEDS: Insulin LISPRO 300 UNITS/3 ML VIAL SUBQ SCH ×4 (08:38→21:21)
[2020-05-24] MEDS: Artificial Tears SOLN 15 ML BOTTLE BOTH EYES SCH ×2 (08:40→21:21)
[2020-05-24] MEDS: Cholecalciferol (D-3) 1,000 UNIT (25MCG) TABLET PO SCH (08:41)
[2020-05-24] MEDS: Multivit/Ca/Min/Fe/FA 1 TAB TABLET PO SCH (08:41)
[2020-05-24] MEDS: DilTIAZem CD (24hr) 120 MG CAP.ER.24H PO SCH (08:42)
[2020-05-24] MEDS: Sennosides/Docusate Sodium TABLET PO SCH ×2 (08:42→21:02)
[2020-05-24] MEDS: *HR* Rivaroxaban 10 MG TABLET PO SCH (17:05)
[2020-05-24] MEDS: *HR* HYDROcodone/Acet 5/325 mg TABLET PO PRN (21:02)
[2020-05-25 01:17] LABS: Hematocrit 34.9 % (37.5-50.1); Hemoglobin 11.4 g/dL (12.9-16.9); Mean Corpuscular HGB Conc 32.7 g/dL (31.6-35.5); Mean Corpuscular Hemoglobin 28.5 pg (28.0-33.3); Mean Corpuscular Volume 87.3 fL (83.0-100.0); Mean Platelet Volume 9.7 fL (9.4-12.4); Platelet Count 400 K/mcL (140-400); White Blood Count 7.2 K/mcL (4.3-11.1)
[2020-05-25 01:36] LABS: BUN/Creatinine Ratio 16 (6-26); Blood Urea Nitrogen 12 mg/dL (8-23); Calcium 9.1 mg/dL (8.6-10.3); Carbon Dioxide 28 mEq/L (23-29); Chloride 101 mEq/L (98-107); Glucose 122 mg/dL (70-105); Osmolality,Calculated 281 (280-300); Potassium 4.1 mEq/L (3.5-5.1); Sodium 135 mEq/L (136-145); eGFR For African Americans > 60 (> 60); eGFR For Non-African Americans > 60 (> 60)
[2020-05-25] MEDS: Ipratropium 1 PUFF INHALER IH SCH ×4 (03:49→22:42)
[2020-05-25] MEDS: Insulin LISPRO 300 UNITS/3 ML VIAL SUBQ SCH ×4 (08:41→20:22)
[2020-05-25] MEDS: DilTIAZem CD (24hr) 120 MG CAP.ER.24H PO SCH (08:42)
[2020-05-25] MEDS: Sennosides/Docusate Sodium TABLET PO SCH ×2 (08:43→20:23)
[2020-05-25] MEDS: Multivit/Ca/Min/Fe/FA 1 TAB TABLET PO SCH (08:43)
[2020-05-25] MEDS: Cholecalciferol (D-3) 1,000 UNIT (25MCG) TABLET PO SCH (08:43)
[2020-05-25] MEDS: Artificial Tears SOLN 15 ML BOTTLE BOTH EYES SCH (08:49)
[2020-05-25] MEDS: *HR* Rivaroxaban 10 MG TABLET PO SCH (17:17)
[2020-05-25] MEDS: Melatonin 3 MG TABLET PO PRN (20:23)
[2020-05-25] MEDS: *HR* HYDROcodone/Acet 5/325 mg TABLET PO PRN (20:23)
[2020-05-26] MEDS: Artificial Tears SOLN 15 ML BOTTLE BOTH EYES SCH ×3 (02:48→21:42)
[2020-05-26] MEDS: Ipratropium 1 PUFF INHALER IH SCH ×4 (04:10→22:42)
[2020-05-26] MEDS: Insulin LISPRO 300 UNITS/3 ML VIAL SUBQ SCH ×4 (07:24→20:23)
[2020-05-26] MEDS: DilTIAZem CD (24hr) 120 MG CAP.ER.24H PO SCH (07:42)
[2020-05-26] MEDS: Sennosides/Docusate Sodium TABLET PO SCH ×2 (07:42→20:23)
[2020-05-26] MEDS: Cholecalciferol (D-3) 1,000 UNIT (25MCG) TABLET PO SCH (07:42)
[2020-05-26] MEDS: Multivit/Ca/Min/Fe/FA 1 TAB TABLET PO SCH (07:42)
[2020-05-26] MEDS: *HR* Rivaroxaban 10 MG TABLET PO SCH (16:43)
[2020-05-26] MEDS: Melatonin 3 MG TABLET PO PRN (20:23)
[2020-05-26] MEDS: *HR* HYDROcodone/Acet 5/325 mg TABLET PO PRN (20:23)
[2020-05-27] MEDS: Ipratropium 1 PUFF INHALER IH SCH ×4 (04:23→22:38)
[2020-05-27] MEDS: Insulin LISPRO 300 UNITS/3 ML VIAL SUBQ SCH ×4 (08:00→21:12)
[2020-05-27] MEDS: Multivit/Ca/Min/Fe/FA 1 TAB TABLET PO SCH (09:48)
[2020-05-27] MEDS: Sennosides/Docusate Sodium TABLET PO SCH ×2 (09:48→21:16)
[2020-05-27] MEDS: DilTIAZem CD (24hr) 120 MG CAP.ER.24H PO SCH (09:48)
[2020-05-27] MEDS: Cholecalciferol (D-3) 1,000 UNIT (25MCG) TABLET PO SCH (09:48)
[2020-05-27] MEDS: Artificial Tears SOLN 15 ML BOTTLE BOTH EYES SCH ×2 (09:57→21:16)
[2020-05-27] MEDS ORDERED: Perflutren Lipid Microsphere 1.3 ML in 0.9 % Sodium Chloride 8.7 ML IVP PRN (15:24)
[2020-05-27] MEDS ORDERED: Isovue-370 500 ML BOTTLE IVP ONE (15:24)
[2020-05-27] MEDS: *HR* Rivaroxaban 10 MG TABLET PO SCH (18:35)
[2020-05-27] MEDS: *HR* HYDROcodone/Acet 5/325 mg TABLET PO PRN (18:40)
[2020-05-27] MEDS: Melatonin 3 MG TABLET PO PRN (21:17)
[2020-05-28] MEDS: Ipratropium 1 PUFF INHALER IH SCH ×3 (04:15→16:11)
[2020-05-28] MEDS: Sennosides/Docusate Sodium TABLET PO SCH (08:58)
[2020-05-28] MEDS: Multivit/Ca/Min/Fe/FA 1 TAB TABLET PO SCH (08:58)
[2020-05-28] MEDS: DilTIAZem CD (24hr) 120 MG CAP.ER.24H PO SCH ×2 (08:59→09:17)
[2020-05-28] MEDS: Cholecalciferol (D-3) 1,000 UNIT (25MCG) TABLET PO SCH (08:59)
[2020-05-28] MEDS: Insulin LISPRO 300 UNITS/3 ML VIAL SUBQ SCH ×2 (09:19→09:20)
[2020-05-28] MEDS: Artificial Tears SOLN 15 ML BOTTLE BOTH EYES SCH (09:33)
[2020-05-28 12:20] VITALS: BP 100/67
== END 2020-05-28 16:25 | disposition home health service (06) | DRG 871 ==
LOC: EMEROOARM 17:31 → 2NENU 17:31 → SUATTDRO 21:01 → 2NENU 21:28 → SUATTDRO 04-19 15:50
PROVIDERS: ADMIT Internal Medicine; ATTEND Internal Medicine